=== PATIENT | male | born 1960 | race Caucasian/White ===

== ENCOUNTER → 2020-07-14 10:17 | Outpatient (BNVA) | payer BC, SELFPAY | PROVIDERS: Family Provider Family Medicine; PCP Family Medicine; Visit Provider Urology | DX: N13.8 Other obstructive and reflux uropathy (principal); N40.1 Benign prostatic hyperplasia with lower urinary tract symptoms; N20.1 Calculus of ureter; R35.8 Other polyuria; Z12.5 Encounter for screening for malignant neoplasm of prostate; F17.290 Nicotine dependence, other tobacco product, uncomplicated | CPT/HCPCS: 81003; G0103 ==

== ENCOUNTER 2021-03-17 07:52 | Outpatient (CLI) | payer BC, SELFPAY ==
--- NOTE | 2021-03-17 08:00 | MR_ITS ---
WS: [id number] MRI CERVICAL SPINE NONCONTRAST HISTORY: NECK PAIN; CERVICAL SPONDYLOSIS W RADICULOPATHY COMPARISON: 05/28/2019 Technique: Multiplanar, multisequence noncontrast imaging of the cervical spine. Straightening of the normal cervical lordosis. No acute fracture. Very small amount of marrow edema a nd increased T2 signal in the C6 vertebral body is similar to the prior study. Signal within the cervical cord is normal. Visualized posterior fossa is unremarkable. Craniocervical junction, C1 and C2 relationship, odontoid process and soft tissues are normal. C2-C3: Normal. C3-C4: Shallow central disc protrusion with no stenosis. C4-C5: Mild osteophytic ridging and disc bulging. Mild bilateral facet joint arthritis. No stenosis. C5-C6: Very shallow central disc protrusion and mild osteophytic ridging and disc bulging. Mild osteo phyte encroachment into the foramina. Very mild bilateral foraminal stenosis. C6-C7: Mild annular disc bulging with bilateral foraminal disc osteophyte complexes displacing the ex iting nerve roots. Mild to moderate bilateral foraminal stenosis and mild central stenosis. There is very minimal disc contact upon the ventral cord but no displacement. Mild facet arthritis. C7-T1: Small foraminal osteophytes. No significant stenosis. Lymph node in the LEFT parotid gland. MR/MR cervical spin wo con* [id number] IMPRESSION: 1. Very mild progression of degenerative disc disease and facet arthritis in t he cervical spine since 05/28/2019. 2. Mild to moderate bilateral foraminal stenosis and mild central stenosis at C6-7 due to disc protrusions and disc osteophyte complexes. Very slight contact on the ventral cervical cord at this level with no displacement of the cord. 3. Mild bilateral foraminal narrowing at C5-6 due to osteophyte disease. 4. Small central disc protrusions at C3-4 and C5-6.
--- NOTE | 2021-03-17 09:23 | XRR_ITS ---
PROCEDURE INFORMATION: Exam: XR Cervical Spine Exam date and time: 03/17/2021 9:23 AM Age: 61 years old Clinical indication: Cervicalgia; Patient HX: Pain 1 month; Additional info: Dorsaigia, unspecified TECHNIQUE: Imaging protocol: XR of the cervical spine. Views: 4 or 5 views. COMPARISON: MR cervical spin wo con* [id number] 03/17/2021 8:18 AM FINDINGS: Bones/joints: No fracture or other acute bone or joint abnormalities are seen in the cervical spine. Chronic degenerative changes are present with osteophytes, joint space narrowing and sclerosis especially at the C6-C7 level. There is no significant malalignment. Soft tissues: Unremarkable. XR/XR cervical spine 4-5V [id number] IMPRESSION: Chronic degenerative joint disease. No acute abnormality.
== END 2021-03-17 07:53 | disposition home or self-care (01) ==
PROVIDERS: PCP Family Medicine; Visit Provider Neurological Surgery
DX: M47.22 Other spondylosis with radiculopathy, cervical region (principal); M47.812 Spondylosis without myelopathy or radiculopathy, cervical region; M50.30 Other cervical disc degeneration, unspecified cervical region; M48.02 Spinal stenosis, cervical region; M50.21 Other cervical disc displacement, high cervical region
CPT/HCPCS: 72050; 72141

== ENCOUNTER 2021-04-08 09:16 | Outpatient (RCR) | payer BC, SELFPAY | END 2021-05-05 23:59 | disposition home or self-care (01) | LOC: SPT 09:16 | PROVIDERS: PCP Family Medicine; Referring Provider Neurological Surgery; Visit Provider Neurological Surgery | DX: M50.30 Other cervical disc degeneration, unspecified cervical region (principal); M50.20 Other cervical disc displacement, unspecified cervical region | CPT/HCPCS: 97161 ==

== ENCOUNTER → 2021-07-21 08:05 | Outpatient (BNVA) | payer BC, SELFPAY | PROVIDERS: PCP Family Medicine; Visit Provider Urology | DX: N13.8 Other obstructive and reflux uropathy (principal); N40.1 Benign prostatic hyperplasia with lower urinary tract symptoms | CPT/HCPCS: 81003 ==

== ENCOUNTER 2021-12-03 10:42 | Observation (INO) | payer BC, SELFPAY ==
[2021-12-03] VITALS (14 sets, daily range): BP systolic 122–181; BP diastolic 76–111; PULSE 51–65; RESP 14–19; TEMP 36–36.6; O2SAT 96–100; BMI 27.2
--- NOTE | 2021-12-03 11:13 | ED_ITS ---
HPI - Altered Mental Status General: Chief Complaint: Weakness Stated Complaint: No memory of this morning, headache Time Seen by Provider: 12/03/21 11:13 PFSH ED PFSH: Medical History Atrial fibrillation BPH with obstruction/lower urinary tract symptoms HTN (hypertension) Polyuria Surgical History S/P appendectomy S/P knee surgery Family History Mother No problems noted. Grandmother Cancer PATERNAL/BREAST Grandfather CAD (coronary artery disease) PATERNAL/MATERNAL Stroke PATERNAL Father Hypertension Social History Smoking and tobacco status: current some day smoker (chews tobacco) smokeless tobacco Alcohol intake: never Household members: spouse Marital status: service: No Current occupational status: retired and other Details: [employer] RET[employer] History of recent travel: No Course Vital Signs: Vital signs: Vital Signs Temperature 96.8 F L 12/03/21 11:12 Pulse Rate 61 12/03/21 11:12 Respiratory Rate 16 12/03/21 11:12 Blood Pressure 181/111 12/03/21 11:12 Pulse Oximetry 98 12/03/21 11:12 Discharge Plan Discharge Condition: Stable Prescriptions: No Action aspirin [Aspir-81] 81 mg tablet,delayed release (DR/EC) 81 mg PO DAILY 0RF ibuprofen [IBU-200] 200 mg tablet 200 mg PO Q6H PRN0RF nadolol 20 mg tablet 10 mg PO DAILY 0RF clonazepam 1 mg tablet 1 mg PO DAILY 0RF famotidine 20 mg tablet 20 mg PO DAILY PRN0RF tamsulosin 0.4 mg capsule 0.4 mg PO QDAY Qty: 30 12RF losartan 25 mg tablet 25 mg PO DAILY Qty: 90 3RF Referrals: Ashlyn Carlson MD [Primary Care Provider] - Coding Level of Care Code 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
--- NOTE | 2021-12-03 11:34 | ECG_ITS ---
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 Measurements Intervals [place] Rate: 52 P: 21 MN: 202 QRS: 4 QRSD: 76 T: 72 QT: 408 QTc: 383 Interpretive Statements SINUS BRADYCARDIA Compared to ECG 12/03/2021 13:23:37 No significant changes Electronically Signed On 12-04-2021 11:04:41 CDT by Cheri Gates M.D. [id number]
--- NOTE | 2021-12-03 11:34 | CT_ITS ---
WS: [id number] CT ANGIOGRAM CEREBRAL AND CAROTID ARTERIES HISTORY: stroke like symptoms, facial droop TECHNIQUE: CT angiogram is performed of the carotid and cerebral arteries. During arterial injection imaging is obtained from the skull vertex to the aortic arch in 1.25 mm imaging. Coronal and sagittal reformats are submitted. Additional multi planar reformats of the carotid and cerebral arteries are submitted, MIP imaging also reviewed. NASCET criteria utilized. [facility] CT [facility] at least one of these dose optimization techniques: automated exposure control; mA and/or kV adjust ment per patient size (includes targeted exams where dose is matched to clinical indication); or iter ative reconstruction. CONTRAST: Visipaque 320; 95 mL IV. DLP: 2734.57 mGy.cm COMPARISON: None available. Carotid Angiogram: Right carotid: Common carotid artery: Arises normally from the innominate artery. No significant plaque or stenosis. Internal carotid artery: No plaque or stenosis. External carotid artery: Patent. Left carotid: Common carotid artery: Arises normally from the aorta. No significant plaque or stenosis. Internal carotid artery: No plaque or stenosis. Prominent loop but no stenosis. External carotid artery: Patent. Right vertebral artery: Normal size. Interestingly transverse foramina at C5-6. Left vertebral artery: Unremarkable. Arises normally from the subclavian artery. Subclavian arteries: No stenosis or significant abnormality. Upper thorax: Normal. Thyroid gland: Normal. Osseous structures: Straightening of the normal cervical lordosis. Mild cervical spondylitic changes. CEREBRAL ANGIOGRAM: Intracranial vertebral arteries: RIGHT vertebral artery slightly greater caliber than the LEFT. Basilar artery: No significant stenosis or occlusion. No aneurysm. Intracranial Internal carotid arteries: Demonstrates no significant stenosis or plaque. Middle cerebral arteries: Normal. Anterior cerebral arteries and ACOM: Hypoplastic but patent RIGHT A1 segment. LEFT A1 segment is trisha nant. Posterior cerebral arteries and PCOM's: Normal. Dural venous sinuses are normally enhancing. Mastoid air cells: Normal. Paranasal sinuses: Normal. Calvarium: Normal. CT/CT angio headneck* [id number] IMPRESSION: 1. Normal carotid arteries. 2. No significant thrombus or stenosis or atherosclerotic plaque within the in tracranial carotid arteries or rincon of Alfaro. 3. Small caliber, hypoplastic RIGHT A1 segment but it is patent. Normal varian t.
--- NOTE | 2021-12-03 11:34 | XR_ITS ---
WS: [id number] Exam: XR chest 1V portable [id number] Date/Time of Exam: 12/03/2021 11:47 AM Reason For Exam: stroke like symptoms Comparison 01/24/2019. Findings: The lungs are clear and fully expanded. Costophrenic angles are sharp. No infiltrates. Bronchovascula r relief appears normal. Cardiac silhouette is unremarkable. Bony elements are intact. XR/XR chest 1V portable [id number] IMPRESSION: Unremarkable chest radiograph.
--- NOTE | 2021-12-03 11:34 | CT_ITS ---
WS: [id number] CT HEAD NONCONTRAST HISTORY: stroke like symptoms TECHNIQUE: Contiguous axial imaging performed through the brain in 2.5 mm imaging. Bone and soft tiss ue windows. Sagittal and coronal reformats reviewed. All CT scans at [facility] use at least one of these dose optimization techniques: automated exposure control; mA and/or kV adjustment per pa tient size (includes targeted exams where dose is matched to clinical indication); or iterative recon struction. DLP: 974.87 mGy.cm COMPARISON: None available. No acute intracranial hemorrhage, midline shift or mass effect. No atrophy or prior infarcts or herniation. Ventricles: Normal size with no hydrocephalus. Paranasal sinuses: As visualized are clear. Mastoid air cells: Well pneumatized. Calvarium and scalp: Skull is intact with no soft tissue edema or swelling. CT/CT head wo con* [id number] IMPRESSION: Negative head CT.
[2021-12-03 11:36] LABS: Glucose Point of Care 107 mg/dL (70-110)
[2021-12-03 11:40] LABS: White Blood Count 6.8 10^3/uL (4.0-10.0)
--- NOTE | 2021-12-03 11:40 | ED_ITS ---
HPI - Neuro Symptoms/Deficit General: Chief Complaint: Weakness Stated Complaint: No memory of this morning, headache Time Seen by Provider: 12/03/21 11:13 History of Present Illness: Mr Kovacs is a 61-year-old gentleman with history of hypertension, questionable atrial fibrillation not on anticoagulation, and stomach ulcers who presents to the emergency department due to strokelike symptoms. He reports over the past few days he has been getting headaches more frequently, he denies history of frequent headaches prior to this. These have not been associated with neurologic deficits. Today he was last definitively seen well at approximately 7:30 AM. He had to drive to [place] for a lab draw in preparation for a doctor's appointment and lost memory of these events. This is slowly come back. This was not associated with headache however he has never had anything similar in the past. Intensity symptoms was severe. Course has been improving. He currently has mild right-sided facial droop which he did not seem to be aware of. Other than stomach issues denies other recent changes in health. No other specific changes in health, exacerbating, or alleviating fa ctors identified. Onset (ago): hour(s) Last Observed Normal: 07:30 Timing confirmed by: family member Location: other History of same: No Severity: severe Quality: improving On Anticoagulants: No Review of Systems General: Reports: 10 or more systems reviewed and unremarkable except in HPI and below PFSH ED PFSH: Medical History Atrial fibrillation BPH with obstruction/lower urinary tract symptoms HTN (hypertension) Polyuria Surgical History S/P appendectomy S/P knee surgery Family History Mother No problems noted. Grandmother Cancer PATERNAL/BREAST Grandfather CAD (coronary artery disease) PATERNAL/MATERNAL Stroke PATERNAL Father Hypertension Social History Smoking and tobacco status: current some day smoker smokeless tobacco Alcohol intake: never Household members: spouse Marital status: service: No Current occupational status: retired and other Details: [employer] RETIRED History of recent travel: No Physical Exam Const: COMMON NORMALS: patient oriented x3 and alert GENERAL APPEARANCE: cooperative and well developed HENMT: COMMON NORMALS: normocephalic and atraumatic HEAD & SCALP: normocephalic and atraumatic THROAT: posterior oropharynx normal Eye: COMMON NORMALS: conjunctivae normal CONJUNCTIVA: Yes conjunctivae normal SCLERA: sclerae normal Neck/C-Spine: COMMON NORMALS: supple GENERAL: Yes trachea midline Resp: COMMON NORMALS: normal respiratory effort EFFORT & INSPECTION: Yes able to speak in complete sentences Cardio: COMMON NORMALS: regular rate and regular rhythm RATE: regular rate RHYTHM: regular rhythm GI: COMMON NORMALS: Soft to palpation PALPATION: Yes Soft to palpation and No Tenderness to palpation present (GI) PERCUSSION: normal to percussion Extremity: GENERAL: Yes normal exam except as noted and No edema Neuro: COMMON NORMALS: patient oriented x3, moves all extremities, 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 Patient outside stroke window/symptoms improving/low NIHSS for TPA. - Labs and xrays personally interpreted by me. EKG is obtained at 1752, 1128, and 1323 interpreted by me. Sinus rhythm with borderline ST segment abnormaliti es. No STEMI. -Fluids given. - Labs notable for no leukocytosis, likely hemoconcentration. No acute metabolic derangement to explain symptoms. Elevated T bili of unclear etiology, per comparison to 2019 mildly late at that time as well. - Imaging notable for no lobar consolidation or pneumothorax. CT head and CTA head neck without evidence of acute pathology symptoms. - Upon serial reexamination after treatment the patient was similar - Based on patient history, evaluation, and testing as interpreted the most likely cause of the patient's condition is stroke/TIA with improving symptoms with possible history of atrial fibrillation not on anticoagulation. - The results of ED evaluation were discussed with the patient including plan for admission due to requirement for level of care not available if discharged to prevent significant worsening/deterioration. - Admitting service was contacted and Dr Foreman with the hospitalist service agreed to admit the patient - Patient was admitted without further deterioration or significant events. Note: Click bubbles or prepopulated rangel in note writing are used for assistance with data collection and billing and are inherently more limited than narrative and other text portions of this note. Please use narrative for additional clini eulalia history and defer to narrative/free test for any case of contradictory information. If information appears in only free text or click bubble it should be considered present or absent as reported. Please contact note rfp writer for clarifications of clinical information or contradictory information. MDM is a brief summary, contradictory or erroneous seeming information should be clarified and full note should be reviewed. Vital Signs: Vital signs: Vital Signs Temperature 97.8 F 12/04/21 11:50 Pulse Rate 69 12/04/21 16:10 Respiratory Rate 18 12/04/21 11:50 Blood Pressure 156/89 12/04/21 11:50 Pulse Oximetry 98 12/04/21 11:50 MDM - Neuro Symptoms/Deficit Medical Decision Making 61-year-old gentleman with history of questionable atrial fibrillation not on anticoagulation resenting with strokelike symptoms that have improved. Patient has amnesia event earlier today and now has right facial droop which spares the forehead. NIHSS 2 and patient is not a candidate for TPA at this time. Admitted for further evaluation and risk factor management. Medical Records I reviewed the patient's medical records. Lab Data I reviewed the patient's lab results. : 12/03/21 11:31 12/03/21 11:31 Radiology Impressions Chest X-Ray 12/03/21 11:34 IMPRESSION: Unremarkable chest radiograph. Head CT 12/03/21 11:34 IMPRESSION: Negative head CT. Head/Neck CTA 12/03/21 11:34 IMPRESSION: 1. Normal carotid arteries. 2. No significant thrombus or stenosis or atherosclerotic plaque within the intracranial carotid arteries or ruby of Alfaro. 3. Small caliber, hypoplastic RIGHT A1 segment but it is patent. Normal variant. Abdomen Ultrasound 12/03/21 19:41 IMPRESSION: 1. Significantly limited evaluation of the RIGHT upper quadrant. The organs in the RIGHT upper quadrant are not adequately visualized. There is a large amount shadowing obscuring the structures. 2. For further evaluation consider CT evaluation with IV and oral contrast. Head MRI 12/04/21 08:11 IMPRESSION: 1. No acute infarct, hemorrhage or mass effect. 2. Very minimal, age-appropriate T2 and FLAIR signal hyperintensities. Probably related to very minimal small vessel ischemic disease. 3. No signal abnormality at the cerebellopontine angle. Laboratory Results WBC 6.8 10^3/uL (4.0-10.0) 12/03/21 11:31 RBC 5.61 10^6/uL (4.1-5.3) H 12/03/21 11:31 Hgb 16.8 g/dL (11.7-16.6) H 12/03/21 11:31 Hct 47.4 % (42.0-52.0) 12/03/21 11:31 MCV 84.5 fl (80-94) 12/03/21 11:31 MCH 29.9 pg (28.0-34.0) 12/03/21 11:31 MCHC 35.4 g/dL (30.0-36.0) 12/03/21 11:31 RDW 13.2 % (12.1-15.1) 12/03/21 11:31 Plt Count 230 10^3/cmm (130-400) 12/03/21 11:31 MPV 10.0 fL (7.4-10.4) 12/03/21 11:31 Neut % (Auto) 60.5 % 12/03/21 11:31 Lymph % (Auto) 27.9 % 12/03/21 11:31 Rooks % (Auto) 8.4 % 12/03/21 11:31 Eos % (Auto) 2.2 % 12/03/21 11:31 Baso % (Auto) 0.7 % 12/03/21 11:31 Neut # (Auto) 4.09 10^3/uL (1.8-7.7) 12/03/21 11:31 Lymph # (Auto) 1.9 10^3/uL (0.8-4.8) 12/03/21 11:31 Rooks # (Auto) 0.6 10^3/uL (0.2-0.9) 12/03/21 11:31 Eos # (Auto) 0.2 10^3/uL (0.0-0.8) 12/03/21 11:31 Baso # (Auto) 0.1 10^3/uL (0.0-0.1) 12/03/21 11:31 Nucleated RBC % (auto) 0 % 12/03/21 11:31 Nucleated RBCs # 0.0 /100WBC 12/03/21 11:31 Sodium 136 mmol/L (136-145) 12/03/21 11:31 Potassium 4.4 mmol/L (3.5-5.1) 12/03/21 11:31 Chloride 100 mmol/L (98-107) 12/03/21 11:31 Carbon Dioxide 26 mmol/L (22-29) 12/03/21 11:31 Anion Gap 14.4 (5-19) 12/03/21 11:31 BUN 16 mg/dL (8-23) 12/03/21 11:31 Creatinine 1.0 mg/dL (0.7-1.2) 12/03/21 11:31 GFR Calculation 76.2 mL/min (90-130) L 12/03/21 11:31 Glucose 93 mg/dL (65-115) 12/03/21 11:31 POC Glucose 107 mg/dL (70-110) 12/03/21 11:27 Estimat Average Glucose 100 12/03/21 11:31 Hemoglobin A1c 5.1 % (4.0-6.0) 12/03/21 11:31 Calculated Osmolality 283 mOsm/kg (285-295) L 12/03/21 11:31 Calcium 9.4 mg/dL (8.5-10.5) 12/03/21 11:31 Total Bilirubin 1.6 mg/dL (0.15-1.2) H 12/03/21 11:31 Total Bilirubin 1.7 mg/dL (0.15-1.2) H 12/03/21 11:31 Direct Bilirubin 0.20 mg/dL (0.00-0.30) 12/03/21 11:31 Indirect Bilirubin 1.40 12/03/21 11:31 GGT 14 U/L (8-61) 12/03/21 11:31 AST 16 U/L (0-40) 12/03/21 11:31 ALT 19 U/L (0-41) 12/03/21 11:31 Alkaline Phosphatase 53 IU/L (40-130) 12/03/21 11:31 Troponin T Baseline 8 ng/L (0-15) 12/03/21 11:31 Troponin T 120 Minute 6.07 ng/L (0-15) 12/03/21 13:53 Delta Troponin T -1.93 ABS# (0-10) L 12/03/21 13:53 Total Protein 7.5 g/dL (6.6-8.7) 12/03/21 11:31 Albumin 4.3 g/dL (3.5-5.2) 12/03/21 11:31 Globulin 3.2 g/dL (1.3-4.6) 12/03/21 11:31 Triglycerides 138 mg/dL (0-150) 12/03/21 11:31 Cholesterol 166 mg/dL (0-200) 12/03/21 11:31 LDL Cholesterol, Calc 89 mg/dL (50-129) 12/03/21 11:31 HDL Cholesterol 49 mg/dL (60-100) L 12/03/21 11:31 LDL/HDL Ratio 1.82 RATIO (0.00-3.22) 12/03/21 11:31 Cholesterol/HDL Ratio 3.39 mg/dL (1.0-5.00) 12/03/21 11:31 Lipase 30 U/L (13-60) 12/03/21 11:31 TSH 2.31 uIU/mL (0.27-4.20) 12/03/21 11:31 Ethyl Alcohol < 10 mg/dL (0-10) 12/03/21 11:31 Discharge Plan Discharge Patient Disposition: Placed in Observation Admit Provider: Carlos Foreman Clinical Impression: Stroke Discharge Diet: Cardiac Discharge Activity: Resume usual activity Coding Level of Care Code ED Bridge 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
[2021-12-03 11:41] LABS: Basophils # 0.1 10^3/uL (0.0-0.1); Basophils % 0.7 %; Eosinophils # 0.2 10^3/uL (0.0-0.8); Eosinophils % 2.2 %; Hematocrit 47.4 % (42.0-52.0); Hemoglobin 16.8 g/dL (11.7-16.6); Lymphocytes # 1.9 10^3/uL (0.8-4.8); Lymphocytes % 27.9 %; Mean Corpuscular HGB Conc 35.4 g/dL (30.0-36.0); Mean Corpuscular Hemoglobin 29.9 pg (28.0-34.0); Mean Corpuscular Volume 84.5 fl (80-94); Monocytes # 0.6 10^3/uL (0.2-0.9); Monocytes % 8.4 %; Neutrophils # 4.09 10^3/uL (1.8-7.7); Neutrophils % 60.5 %; Nucleated Red Blood Cells % 0 %; Platelet Count 230 10^3/cmm (130-400); Red Blood Count 5.61 10^6/uL (4.1-5.3); Red Cell Distribution Width 13.2 % (12.1-15.1)
[2021-12-03] MEDS: lactated ringers 1,000 ML 999 ML IV (11:58)
[2021-12-03 12:10] LABS: Troponin(5th) Baseline 8 ng/L (0-15)
[2021-12-03 12:15] LABS: Alanine Aminotransferase 19 U/L (0-41); Albumin Level 4.3 g/dL (3.5-5.2); Alkaline Phosphatase 53 IU/L (40-130); Anion Gap 14.4 (5-19); Aspartate Amino Transferase 16 U/L (0-40); Blood Urea Nitrogen 16 mg/dL (8-23); Calcium 9.4 mg/dL (8.5-10.5); Carbon Dioxide 26 mmol/L (22-29); Chloride 100 mmol/L (98-107); Globulin 3.2 g/dL (1.3-4.6); Glomerular Filtration Rate 76.2 mL/min (90-130); Glucose 93 mg/dL (65-115); Osmolality Calculated 283 mOsm/kg (285-295); Potassium 4.4 mmol/L (3.5-5.1); Sodium 136 mmol/L (136-145); Thyroid Stimulating Hormone 2.31 uIU/mL (0.27-4.20); Total Bilirubin 1.7 mg/dL (0.15-1.2); Total Protein 7.5 g/dL (6.6-8.7)
--- NOTE | 2021-12-03 12:25 | PC.PHAR ---
PT STATES HE TAKES CARE OF HIS OWN MEDICATIONS-PT STATES HE IS ON A TITRATING DOSE OF CLONAZEPAM EXT MED HISTORY SHOWS 1MG DAILY LAST FILLED 11/05/21 30D/S AND 0.5MG BID FILLED ON 11/30/21 30D/S-RX FILLED 11/12/21 FOR PROTONIX 40MG DAILY AND PRILOSEC 40MG DAILY FILLED ON 11/17/21 30D/S PT STATES HE IS ONLY TAKING PEPCID 20MG BID STATES ITS AN OLD RX EXT MED HISTROY SHOWS LAST FILLED 08/15/21 30D/S-EXT MED HISTORY SHOWS FLOMAX 0.4MG DAILY ON 08/16/21 30D/S PT STATES HE HASNT TAKEN IT FOR 3 YEARS-PT STATES THE ZOLOFT 25MG WAS DCED RX FILLED 10/30/21 60D/S-NOTES ARE MADE IN THE PHARMACY COMMENTS
[2021-12-03] MEDS: iodixanol 320 mg/mL 100mL Btl IV (12:27)
--- NOTE | 2021-12-03 13:34 | ECG_ITS ---
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 Measurements Intervals [place] Rate: 62 P: 52 [place]: 209 QRS: -5 QRSD: 78 T: 68 QT: 383 QTc: 391 Interpretive Statements SINUS RHYTHM Compared to ECG 01/24/2019 10:43:30 Atrial fibrillation no longer present Electronically Signed On 12-04-2021 13:50:23 CDT by Cheri Gates M.D. [email or web address]
[2021-12-03 14:27] LABS: Troponin 5 2HR 6.07 ng/L (0-15)
[2021-12-03 14:40] LABS: Troponin 5 2HR Delta -1.93 ABS# (0-10)
[2021-12-03] MEDS: CLONazepam 0.5 mg Tablet PO (15:02)
--- NOTE | 2021-12-03 15:24 | P.HP_ITS ---
Providers/Chief Complaint Primary Care Provider: Ashlyn Carlson MD Chief Complaint: No memory of this morning, headache History of Present Illness Cezar Kovacs is a 61 year old male with a past medical history of hypertension, anxiety, possible atrial fibrillation? Who presents [facility] due to amnesia. 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 Review of Systems Const: Denies: fever(s) or fatigue ENMT: Denies: nasal congestion Resp: Denies: dyspnea, non-productive cough or wheezing GI: Denies: abdominal pain, nausea, vomiting or hematemesis : Denies: dysuria Skin/Breast: Denies: rash Neuro: Denies: headache(s), dizziness or vertigo Endo: Denies: polyuria or polydipsia Medications/Allergies Home Medications Medication Instructions Recorded Confirmed Last Taken Type nadolol 20 mg tablet 20 mg PO BEDTIME tab 02/13/20 12/03/21 12/02/21 History clonazepam 1 mg tablet See Rx Instructions .ROUTE 07/21/21 12/03/21 12/03/21 07:00 History .COMPLEX tab 1 MG famotidine 20 mg tablet 20 mg PO BID 07/21/21 12/03/21 12/03/21 07:00 History aspirin 325 mg tablet 325 mg PO QPM 12/03/21 12/03/21 12/02/21 History losartan 25 mg tablet 25 mg PO QAM 12/03/21 12/03/21 12/03/21 07:00 History Allergies Allergy/AdvReac Type Severity Reaction Status Date / Time No Known Allergies Allergy Verified 12/03/21 12:18 PFSH Acute PFSH: Medical History Atrial fibrillation BPH with obstruction/lower urinary tract symptoms HTN (hypertension) Polyuria Surgical History S/P appendectomy S/P knee surgery Family History Mother No problems noted. Grandmother Cancer PATERNAL/BREAST Grandfather CAD (coronary artery disease) PATERNAL/MATERNAL Stroke PATERNAL Father Hypertension Social History Smoking and tobacco status: current some day smoker smokeless tobacco Alcohol intake: never Household members: spouse Marital status: service: No Current occupational status: retired and other Details: [employer] History of recent travel: No Vitals/I&O/Wt Last Vital Signs Temp 96.8 F L 12/03/21 11:12 Pulse 56 L 12/03/21 15:07 Resp 15 12/03/21 15:07 BP 159/87 12/03/21 15:07 Pulse Ox 99 12/03/21 15:07 12/03/21 12/03/21 12/03/21 06:59 14:59 22:59 Intake Total 1000 / 1000 Balance 1000 / 1000 Weight last 48 hrs Weight 104.326 kg Physical Exam Const: COMMON NORMALS: no acute distress and patient oriented x3 HENMT: COMMON NORMALS: normocephalic HEAD & SCALP: normocephalic Eye: COMMON NORMALS: Equal, round and reactive pupils present and EOMs intact bilaterally Resp: COMMON NORMALS: normal respiratory effort, No retractions, No use of accessory muscles and clear to auscultation bilaterally AUSCULTATION: clear to auscultation bilaterally Cardio: COMMON NORMALS: no JVD, regular rate, regular rhythm, S1 normal heart sound present and S2 normal heart sound present RATE: regular rate RHYTHM: regular rhythm HEART SOUNDS: S1 normal heart sound present and S2 normal heart sound present GI: COMMON NORMALS: Normal to inspection, nondistended, normoactive bowel sounds present, Soft to palpation, non-tender, No hepatosplenomegaly present, no masses and no bruits PALPATION: Yes Soft to palpation and Yes No hepatosplenomegaly present Extremity: COMMON NORMALS: capillary refill normal, no clubbing, cyanosis or edema, no calf tenderness and no pedal edema Neuro: COMMON NORMALS: patient oriented x3, CN's II-XII intact bilaterally, moves all extremities, no focal motor deficits and no sensory deficits noted CRANIAL NERVES: Yes CN normal except as noted COORDINATION/BALANCE: [id number] test normal and [id number] test normal SPEECH: speech normal Psych: COMMON NORMALS: mental status grossly normal Data : 12/03/21 11:31 12/03/21 11:31 A&P Assessment and plan (1) TGA (transient global amnesia): Status: Acute (2) Stroke: Status: Acute (3) BPH with obstruction/lower urinary tract symptoms: Status: Acute (4) HTN (hypertension): Status: Acute Qualifiers: Hypertension type: essential hypertension Qualified Code(s): I10 - Essential (primary) hypertension (5) Atrial fibrillation: Status: Acute Qualifiers: Atrial fibrillation type: paroxysmal Qualified Code(s): I48.0 - Paroxysmal atrial fibrillation Plan Transient global amnesia -Patient has a history of possible atrial fibrillation, he presented to the ER in the past, he had an EKG which showed atrial fibrillation, but there was a lot of artifact he then had an event monitor ordered for 14 days that showed 1 run of SVT for 15 seconds, no other episodes -He is only on aspirin 325 -NIH stroke scale 2, out of TPA window, for me his NIH stroke scale 0, I cannot really discern a right facial droop, no other focal neurologic deficits -CT of the head was within normal limits, CTA was within normal limits, blood work no acute abnormalities except a bili of 1.7 -He does reports some upper abdominal pain, bloating, history of stomach ulcers -Telemetry shows sinus bradycardia Plan -Admit -Neurochecks -NIH stroke scale -Continue aspirin, statin -Hold beta-susannah, continue losartan -We will order cardiac echocardiogram -Telemetry monitoring -We will consider brain MRI -Likely will require a 30-day event monitor on discharge for possible atrial fibrillation -Elevated T bili, 1.7, will do lipase, fractionated bili, ammonia, alcohol level, ultrasound abdomen -Full code -Lovenox for DVT prophylaxis Attestations Medical Necessity Statement*: Patient requires hospitalization for transient global amnesia, outpatient with observation Coding Level of Care Code Acute Laboratory Technology Teacher for Chg Fwd Diagnoses TGA (transient global amnesia) G45.4 Stroke I63.9 BPH with obstruction/lower urinary tract symptoms N40.1; N13.8 HTN (hypertension) I10 Hypertension type: essential hypertension Atrial fibrillation I48.0 Atrial fibrillation type: paroxysmal
--- NOTE | 2021-12-03 15:50 | PC.NURSE ---
PATIENT UA COLLECTED BY CLEAN CATCH
[2021-12-03 16:01] LABS: Add Urine Microscopic? NO; Charge for UA Resulting for Rev
[2021-12-03 16:01] LABS: Alcohol Level < 10 mg/dL (0-10); Lipase 30 U/L (13-60); Total Bilirubin 1.6 mg/dL (0.15-1.2)
[2021-12-03 16:04] LABS: Bilirubin Urine Neg (Negative); Blood Urine Neg (Negative); Glucose Urine UA Norm (Normal); Ketones Urine Negative (Negative); Leukocyte Esterase Urine Negative (Negative); Nitrate Urine Negative (Negative); Protein Urine Neg (Negative); Urine Appearance Clear (CLEAR); Urine Color Yellow (Yellow); Urobilinogen Urine Norm (Negative); pH Urine 7 (5-7)
[2021-12-03 16:27] LABS: Ammonia 21 umol/L (16-60)
--- NOTE | 2021-12-03 17:34 | ECG_ITS ---
[facility] Test Date: 2021-12-03 Pat Name: Cezar Kovacs Department: Room: Gender: Male [employer]: : 1960 Requested By: Bernardo Ray Order Number: [id number] Ann Bellamy MD: Cheri Gates M.D. Measurements Intervals [place] Rate: 55 P: 47 GA: 196 QRS: -4 QRSD: 78 T: 66 QT: 423 QTc: 407 Interpretive Statements SINUS BRADYCARDIA Compared to ECG 12/03/2021 11:28:43 Sinus rhythm no longer present Electronically Signed On 12-04-2021 11:22:33 CDT by Cheri Gates M.D. [id number]
--- NOTE | 2021-12-03 19:41 | USCV_ITS ---
Transthoracic Echo Cezar Kovacs Age: 61 Gender: M : 1960 Exam Date: 12/03/2021 20:27 Ordering Phys: Carlos Foreman MD Technologist: CKJen Exam Location: [facility] [place] Indication: Transient global amnesia BP: 129 / 71 HR: 53 Rhythm: Sinus Technical Quality: Adequate MEASUREMENTS (Male / Female) Normal Values 2D ECHO LV Diastolic Diameter PLAX 4.4 cm 4.2 - 5.9 / 3.9 - 5.3 cm LV Systolic Diameter PLAX 3.7 cm IVS Diastolic Thickness 1.9 cm 0.6 - 1.0 / 0.6 - 0.9 cm IVS Systolic Thickness 2.1 cm LVPW Diastolic Thickness 1.8 cm 0.6 - 1.0 / 0.6 - 0.9 cm LVPW Systolic Thickness 2.2 cm LVOT Diameter 1.8 cm LV Ejection Fraction 2D Teich 21.8 % LV Ejection Fraction MOD 2C 63.3 % LV Ejection Fraction 2C AL 62.8 % LA Diameter 2.3 cm LA Width 2.5 cm LA Height 4.1 cm RA Width 3.7 cm RA Height 4.0 cm Aorta at Sinotubular Diameter 2.6 cm M-MODE Aortic Annulus Diameter 3.3 cm LA Ao Ratio MM 0.7 MV E Point Septal Separation 0.4 cm DOPPLER AV Peak Velocity 100.8 cm/s LVOT Peak Velocity 107.0 cm/s AV Area Cont Eq vti 2.3 cm squared AV Area Cont Eq pk 2.8 cm squared MV Peak Velocity 113.0 cm/s MV Area PHT 4.5 cm squared Mitral E to A Ratio 1.0 MV E' Velocity 67.2 cm/s Mitral E to MV E' Ratio 12.4 Mitral E to LV E' Lateral Ratio 11.3 Mitral E to LV E' Septal Ratio 13.8 TR Peak Velocity 198.3 cm/s TR Peak Gradient 15.7 mmHg TR Mean Velocity 125.9 cm/s TR Mean Gradient 8.6 mmHg TR Velocity Time Integral 57.5 cm Right Atrial Pressure 5.0 mmHg Pulmonary Artery Systolic Pressu 20.7 mmHg PV Peak Velocity 88.0 cm/s RV Acceleration Time 0.1 s RV Ejection Time 0.3 s RV AcT/ET 0.5 FINDINGS Left Ventricle Normal left ventricular size and systolic function, EF 65 %. No regional wall motion abnormalities. Mild left ventricular hypertrophy. Right Ventricle Appears to be mildly dilated.normal right ventricular systolic function. Right Atrium Appears to be mildly dilated Left Atrium The left atrium is normal in size. Mitral Valve Mild mitral valve regurgitation. Aortic Valve Thickened aortic valve. Tricuspid Valve No gross abnormalities noted Pulmonic Valve Pulmonic valve not well visualized. Pericardium No pericardial effusion. Aorta Normal aortic annulus size. CONCLUSIONS Normal left ventricular size and systolic function, EF 65 %. No regional wall motion abnormalities. Mild left ventricular hypertrophy. The right atrium and right ventricle appears to be mildly dilated. Mild mitral valve regurgitation. Thickened aortic valve. There is no pericardial effusion. There are no intracardiac masses. Compared to the study from 03/21/2019, there may not be a significant change Dr Dolores Leonard MD FACC (Electronically Signed) Final Date: 04 December 2021 09:13 S
--- NOTE | 2021-12-03 19:41 | US_ITS ---
WS: [id number] RIGHT UPPER QUADRANT ULTRASOUND HISTORY: RIGHT upper quadrant pain. COMPARISON: None. Quality of this examination is significantly limited. There is a large amount shadowing which is prob ably bowel gas throughout the abdomen obscuring the organs. The liver is very poorly visualized and h as an abnormal texture. Liver: 12.6 cm in length. Poorly defined liver with an abnormal texture. The liver is not well identi fied and not well imaged. Portal Vein: Not visualized. Gallbladder: No visualized. CBD: 0.5 cm Pancreas: Not visualized. Right kidney: Not visualized. Aorta and IVC: Not visualized. No ascites. US/US abdomen limited [id number] IMPRESSION: 1. Significantly limited evaluation of the RIGHT upper quadrant. The organs in the RIGHT upper quadrant are not adequately visualized. There is a large amoun t shadowing obscuring the structures. 2. For further evaluation consider CT evaluation with IV and oral contrast.
[2021-12-03] MEDS: aspirin 325 mg Tablet PO (20:01)
[2021-12-03] MEDS: atorvastatin 40 mg Tablet PO (20:01)
[2021-12-03] MEDS: pantoprazole 40 mg SDV IVP (20:01)
[2021-12-03] MEDS: enoxaparin 40 mg/0.4 mL Syringe SUBCUT (20:02)
[2021-12-03 20:11] LABS: Chol HDL Ratio 3.39 mg/dL (1.0-5.00); Cholesterol 166 mg/dL (0-200); HDL Cholesterol 49 mg/dL (60-100); LDL Cholesterol Calculated 89 mg/dL (50-129); LDL HDL Ratio 1.82 RATIO (0.00-3.22); Triglycerides 138 mg/dL (0-150)
[2021-12-03 20:18] LABS: Estmated Average Glucose 100; Gamma Glutamyl Transferase 14 U/L (8-61); Hemoglobin A1C 5.1 % (4.0-6.0)
--- NOTE | 2021-12-03 20:26 | PC.NURSE ---
i reported low pulse 54 to nurse
[2021-12-04] VITALS (7 sets, daily range): BP systolic 129–156; BP diastolic 70–90; PULSE 51–69; RESP 17–18; TEMP 36.6–36.8; O2SAT 96–98
--- NOTE | 2021-12-04 00:12 | PC.NURSE ---
i reported to nurse low pulse 55
--- NOTE | 2021-12-04 04:43 | PC.NURSE ---
i reported low pulse 53 to nurse
[2021-12-04] MEDS: losartan 50 mg Tablet 25 MG PO (05:05)
[2021-12-04] MEDS: CLONazepam 1 mg Tablet 0.5 MG PO (05:06)
--- NOTE | 2021-12-04 08:11 | MR_ITS ---
WS: [id number] MRI BRAIN WITHOUT CONTRAST HISTORY: Confusion, loss of memory. COMPARISON: CT 12/03/2021 TECHNIQUE: Diffusion imaging, multiplanar T1, T2 and FLAIR imaging obtained. No evidence for acute infarct or hemorrhage. Kaur-white matter differentiation is normal. There are a few very minimal T2 and FLAIR signal hyperintensities in the subcortical white matter. Appropriate f or patient's age. No prior infarct. No remote or acute infarcts or volume loss. Ventricles and extra-axial spaces are normal. No inferior displacement of cerebellar tonsils. The sella turcica and pituitary gland are unremarkabl e. Pituitary gland does appear small but there is no mass or mass effect. Dural venous sinuses and [place] of [place] demonstrate no abnormality on this unenhanced studies. No s ignal abnormality at the cerebellopontine angles. Paranasal sinuses: Clear. Mastoid air cells: Normal. Calvarium and scalp: Intact. MR/MR head wo con* [id number] IMPRESSION: 1. No acute infarct, hemorrhage or mass effect. 2. Very minimal, age-appropriate T2 and FLAIR signal hyperintensities. Probabl y related to very minimal small vessel ischemic disease. 3. No signal abnormality at the cerebellopontine angle.
--- NOTE | 2021-12-04 10:35 | PC.OT ---
Addendum entered by Carol Mckeon 12/04/21 10:39: 10:19 - 10:30 Original Note: Upon therapist arrival pt laying semi-reclined in bed with friend at bedside. Pt returned from stress test and RN approved OT eval. Pt screened demonstrating WFL for ROM, strength, oriented, and demonstrated independence with bed mobility, functional mobility, no DME or assistive equipment at home. Education/discussion on any adaptations/concerns with return home. Verbalized understanding. No further OT indicated this date.
--- NOTE | 2021-12-04 10:45 | PC.CHAP ---
Pastoral Care Encounter/Spiritual Assessment Type of Contact [] Declined geophysicist visit [] Patient/Family/Request visit [] Outpatient visit [] Follow-up visit [] Physician referral [] Code/Alert [x] Routine visit [] Staff referral [] Actively dying [] Patient sleeping [] Family support [] [] Out of room [] Palliative care [] [] Receiving care in room [] Pre-surgical visit [] Trauma [] Long length of stay [] ICU visit [] Other: Relational/Emotional Strength [x] Patient feels connected with others/family/visitors/staff [] Distress [] Loneliness/isolation [] Abandonment Spirituality of Patient [x] Person of Page [] Attends Muslim of their Page []x Believes in Prayer [] Reads Bible or Catholic materials [x] There are Spiritual issues to be addressed Email Marketing Coordinator Interventions [x] Prayer [x Active listening [x] Non-anxious presence [x] Spiritual/emotional support [] Crisis/trauma care [] Spiritual counseling [] Bereavement support [] Provided bereavement packet [] Provided Bible/devotional materials [] Provided toy/stuffed animal, coloring book to patient or family member [] Provided Communion [] Anointing/[place] [] Salvation [x] Completed spiritual assessment [] Other: Impact on Illness or Injury [] Angry [] Fearful [] Anxious [] Often cries [] Exhaustion [] Unable to work [] Unable to attend adventism [] Unable to walk/stand [] Unable to read [] Unable to drive [] Unable to eat/drink [] Unable to sleep [] Unable to be with family [] Patient intubated [] Other: Summary Time spent with patient 15 min
--- NOTE | 2021-12-04 12:06 | PM.DCS ---
Discharge Providers Date of Admission: 12/03/21 14:07 Date of Discharge: December 04, 2021 Attending Provider at Admission: Carlos Foreman MD Attending Provider at Discharge: Carlos Foreman MD Primary Care Provider: Ashlyn Carlson MD Diagnoses at Discharge Discharge Diagnosis (1) TGA (transient global amnesia): Status: Acute (2) Stroke: Status: Acute (3) BPH with obstruction/lower urinary tract symptoms: Status: Acute (4) HTN (hypertension): Status: Acute Qualifiers: Hypertension type: essential hypertension Qualified Code(s): I10 - Essential (primary) hypertension (5) Atrial fibrillation: Status: Acute Qualifiers: Atrial fibrillation type: paroxysmal Qualified Code(s): I48.0 - Paroxysmal atrial fibrillation Reason for Visit Reason for Visit: No memory of this morning, headache Hospital Course Hospital Course Cezar Kovacs is a 61 year old male with a past medical history of hypertension, anxiety, possible atrial fibrillation?? Who presents [facility] due to amnesia. Patient was admitted to [facility] for transient global amnesia, NIH stroke scale is 2 on admission, out of TPA window, NIH stroke scale for me during my evaluation was 0, I cannot really discern any right facial droop which was reported on admission or any other focal neurologic deficits, CT head within normal limits, CTA within normal limits, MRI of the brain within normal limits, no acute telemetry events, discharged on aspirin 81 mg daily, atorvastatin 40 mg, with a follow-up with neurology as outpatient. Patient was advised if he were to have recurrent strokelike symptoms go to the emergency room or call [phone] immediately Patient has a questionable history of atrial fibrillation, he presented to the ER in the past, and a EKG showed atrial fibrillation, but there was a lot of artifact, he then had an event monitor ordered for 14 days which showed SVT for 15 seconds, no acute atrial fibrillation events, there has been a question if he truly had atrial fibrillation or not. However he tells me that he intermittently has chest palpitations episodes, he interprets it as a gas and abdominal pain, but whenever he checks his pulse it is always racing and it skips a beat. During his hospitalization, EKG did not show any atrial fibrillation events, telemetry did not show any atrial fibrillation, his EKG actually showed a sinus bradycardia. However given his clinical symptoms of chest palpitations, now with transient global amnesia, and prior history of atrial fibrillation, his symptomatology is highly concerning for embolic CVA. Thus given his symptomatology, his TGA, after discussing the risks and benefits of anticoagulation, agreed to proceed with Eliquis 5 mg twice daily. I have discharged him on event monitor for 30 days with a follow-up with cardiology next week. I am not discharged him on any rhythm or rate control medications as he remains in sinus rhythm, and also has sinus bradycardia. Patient does complain of some epigastric discomfort had an EGD roughly a year ago with no specific findings. As I am putting him on Eliquis 5 mg twice a day, there is a concern of possible gastric ulcers his hemoglobin is within normal limits, no bloody or black stool complaints. Nonetheless I discharged on Protonix 40 twice daily with Carafate with a recheck of his hemoglobin through his primary care provider in 1 week. If he were to have any bloody or black stools or any lightheadedness or sudden worsening abdominal pain go to the emergency room. Physical Exam Const: COMMON NORMALS: no acute distress and patient oriented x3 Resp: COMMON NORMALS: normal respiratory effort, No retractions, No use of accessory muscles and clear to auscultation bilaterally AUSCULTATION: clear to auscultation bilaterally Cardio: COMMON NORMALS: regular rate, regular rhythm, S1 normal heart sound present and S2 normal heart sound present RATE: regular rate RHYTHM: regular rhythm HEART SOUNDS: S1 normal heart sound present and S2 normal heart sound present GI: COMMON NORMALS: Normal to inspection, nondistended, normoactive bowel sounds present, Soft to palpation and non-tender PALPATION: Yes Soft to palpation Extremity: COMMON NORMALS: no pedal edema Neuro: COMMON NORMALS: patient oriented x3 Psych: COMMON NORMALS: mental status grossly normal Discharge Data Studies Completed and Pending Completed Studies During Hospitalization Category Date Time Status CT angio headneck* [id number] Urgent Cat Scan 12/03/21 11:[address] head wo con* [id number] Urgent Cat Scan 12/03/21 11:34 Completed XR chest 1V portable [id number] Urgent Exams 12/03/21 11:34 Completed MR head wo con* [id number] Stat MRI 12/04/21 08:11 Completed US abdomen limited [id number] Routine Ultrasound 12/03/21 19:41 Completed Pending at discharge Category Date Time Status CV. echo complete* [id number] Routine Ultrasound 12/03/21 19:41 Taken Radiology Impressions Chest X-Ray 12/03/21 11:34 IMPRESSION: Unremarkable chest radiograph. Head CT 12/03/21 11:34 IMPRESSION: Negative head CT. Head/Neck CTA 12/03/21 11:34 IMPRESSION: 1. Normal carotid arteries. 2. No significant thrombus or stenosis or atherosclerotic plaque within the intracranial carotid arteries or [place] of [place]. 3. Small caliber, hypoplastic RIGHT A1 segment but it is patent. Normal variant. Abdomen Ultrasound 12/03/21 19:41 IMPRESSION: 1. Significantly limited evaluation of the RIGHT upper quadrant. The organs in the RIGHT upper quadrant are not adequately visualized. There is a large amount shadowing obscuring the structures. 2. For further evaluation consider CT evaluation with IV and oral contrast. Head MRI 12/04/21 08:11 IMPRESSION: 1. No acute infarct, hemorrhage or mass effect. 2. Very minimal, age-appropriate T2 and FLAIR signal hyperintensities. Probably related to very minimal small vessel ischemic disease. 3. No signal abnormality at the cerebellopontine angle. Laboratory Results WBC 6.8 10^3/uL (4.0-10.0) 12/03/21 11:31 RBC 5.61 10^6/uL (4.1-5.3) H 12/03/21 11:31 Hgb 16.8 g/dL (11.7-16.6) H 12/03/21 11:31 Hct 47.4 % (42.0-52.0) 12/03/21 11:31 MCV 84.5 fl (80-94) 12/03/21 11:31 MCH 29.9 pg (28.0-34.0) 12/03/21 11:31 MCHC 35.4 g/dL (30.0-36.0) 12/03/21 11:31 RDW 13.2 % (12.1-15.1) 12/03/21 11:31 Plt Count 230 10^3/cmm (130-400) 12/03/21 11:31 MPV 10.0 fL (7.4-10.4) 12/03/21 11:31 Neut % (Auto) 60.5 % 12/03/21 11:31 Lymph % (Auto) 27.9 % 12/03/21 11:31 Hancock % (Auto) 8.4 % 12/03/21 11:31 Eos % (Auto) 2.2 % 12/03/21 11:31 Baso % (Auto) 0.7 % 12/03/21 11:31 Neut # (Auto) 4.09 10^3/uL (1.8-7.7) 12/03/21 11:31 Lymph # (Auto) 1.9 10^3/uL (0.8-4.8) 12/03/21 11:31 Hancock # (Auto) 0.6 10^3/uL (0.2-0.9) 12/03/21 11:31 Eos # (Auto) 0.2 10^3/uL (0.0-0.8) 12/03/21 11:31 Baso # (Auto) 0.1 10^3/uL (0.0-0.1) 12/03/21 11:31 Nucleated RBC % (auto) 0 % 12/03/21 11:31 Nucleated RBCs # 0.0 /100WBC 12/03/21 11:31 Sodium 136 mmol/L (136-145) 12/03/21 11:31 Potassium 4.4 mmol/L (3.5-5.1) 12/03/21 11:31 Chloride 100 mmol/L (98-107) 12/03/21 11:31 Carbon Dioxide 26 mmol/L (22-29) 12/03/21 11:31 Anion Gap 14.4 (5-19) 12/03/21 11:31 BUN 16 mg/dL (8-23) 12/03/21 11:31 Creatinine 1.0 mg/dL (0.7-1.2) 12/03/21 11:31 GFR Calculation 76.2 mL/min (90-130) L 12/03/21 11:31 Glucose 93 mg/dL (65-115) 12/03/21 11:31 POC Glucose 107 mg/dL (70-110) 12/03/21 11:27 Estimat Average Glucose 100 12/03/21 11:31 Hemoglobin A1c 5.1 % (4.0-6.0) 12/03/21 11:31 Calculated Osmolality 283 mOsm/kg (285-295) L 12/03/21 11:31 Calcium 9.4 mg/dL (8.5-10.5) 12/03/21 11:31 Total Bilirubin 1.6 mg/dL (0.15-1.2) H 12/03/21 11: Total Bilirubin 1.7 mg/dL (0.15-1.2) H 12/03/21 11:31 Direct Bilirubin 0.20 mg/dL (0.00-0.30) 12/03/21 11: Indirect Bilirubin 1.40 12/03/21 11:31 GGT 14 U/L (8-61) 12/03/21 11:31 AST 16 U/L (0-40) 12/03/21 11:31 ALT 19 U/L (0-41) 12/03/21 11: Alkaline Phosphatase 53 IU/L (40-130) 12/03/21 11: Ammonia 21 umol/L (16-60) 12/03/21 15:40 Troponin T Baseline 8 ng/L (0-15) 12/03/21 11:31 Troponin T 120 Minute 6.07 ng/L (0-15) 12/03/21 13:53 Delta Troponin T -1.93 ABS# (0-10) L 12/03/21 13:53 Troponin T Hi Sens 6Hr 6.00 ng/L (0-15) 12/03/21 17:43 Troponin T Hi Sens 6Hr Delta -2.00 ng/L (0-12) L 12/03/21 17:43 Total Protein 7.5 g/dL (6.6-8.7) 12/03/21 11: Albumin 4.3 g/dL (3.5-5.2) 12/03/21 11: Globulin 3.2 g/dL (1.3-4.6) 12/03/21 11:31 Triglycerides 138 mg/dL (0-150) 12/03/21 11: Cholesterol 166 mg/dL (0-200) 12/03/21 11:31 LDL Cholesterol, Calc 89 mg/dL (50-129) 12/03/21 11: HDL Cholesterol 49 mg/dL (60-100) L 12/03/21 11:31 LDL/HDL Ratio 1.82 RATIO (0.00-3.22) 12/03/21 11:31 Cholesterol/HDL Ratio 3.39 mg/dL (1.0-5.00) 12/03/21 11:31 Lipase 30 U/L (13-60) 12/03/21 11:31 TSH 2.31 uIU/mL (0.27-4.20) 12/03/21 11:31 Urine Color Yellow (Yellow) 12/03/21 15:37 Urine Appearance Clear (CLEAR) 12/03/21 15:37 Urine pH 7 (5-7) 12/03/21 15:37 Ur Specific [place] 1.010 (1.005-1.030) 12/03/21 15:37 Urine Protein Neg (Negative) 12/03/21 15:37 Urine Glucose (UA) Norm (Normal) 12/03/21 15:37 Urine Ketones Negative (Negative) 12/03/21 15:37 Urine Blood Neg (Negative) 12/03/21 15:37 Urine Nitrate Negative (Negative) 12/03/21 15:37 Urine Bilirubin Neg (Negative) 12/03/21 15:37 Urine Urobilinogen Norm mg/dL (Negative) 12/03/21 15:37 Ur Leukocyte Esterase Negative (Negative) 12/03/21 15:37 Ethyl Alcohol < 10 mg/dL (0-10) 12/03/21 11:31 Vitals Last Vital Signs Temp 97.8 F 12/04/21 11:50 Pulse 56 L 12/04/21 11:50 Resp 18 12/04/21 11:50 BP 156/89 12/04/21 11:50 Pulse Ox 98 12/04/21 11:50 Discharge Plan Discharge Patient Disposition: Home Condition: Stable Prescriptions: New pantoprazole [Protonix] 40 mg tablet,delayed release (DR/EC) 40 mg PO BID 30 Days Qty: 60 0RF sucralfate [Carafate] 1 gram tablet 1 g PO BID 28 Days Qty: 56 0RF atorvastatin 40 mg Tablet 40 mg PO BEDTIME 30 Days Qty: 30 0RF Eliquis 5 mg tablet 5 mg PO BID 30 Days Qty: 60 0RF aspirin 81 mg capsule 81 mg PO DAILY 30 Days Qty: 30 0RF Continued clonazepam 1 mg tablet See Rx Instructions .ROUTE .COMPLEX 0RF Rx Instructions: TITRATING DOSE losartan 25 mg tablet 25 mg PO QAM 0RF Discontinued nadolol 20 mg tablet 20 mg PO BEDTIME 0RF famotidine 20 mg tablet 20 mg PO BID 0RF aspirin 325 mg Tablet 325 mg PO QPM 0RF Discharge Orders: Discharge Order (Routine); Ordered 12/04/21 Ordered By: Carlos Foreman Other Ambulatory Orders: MCT/Event Monitor 30 Days (Routine) Timeframe: 1 Day Facility: [facility] - Location: Radiology Ordered By: Carlos Foreman Referrals: Eliza Don MD [Physician] - 2 weeks (cva ) Ashlyn Carlson MD [Primary Care Provider] - 1-3 days Navin Byers MD [Physician] - 1 week Discharge Diet: Cardiac Discharge Activity: Resume usual activity Patient Instructions: Opioid Safety Activity Restrictions/Additional Instructions: -Please decrease aspirin dose to 81 mg daily -I have added on Eliquis 5 mg twice a day which is a blood thinner -Follow-up with primary care provider in 1 week for recheck hemoglobin -Continue Protonix, Carafate -If you develop bloody or black stools or worsening abdominal pain go to the emergency room -Please follow-up with Dr. Byers next week -Please follow-up with event monitor with cardiology -Please follow-up with neurology -Please discuss with primary care about repeat EGD and colonoscopy Discharge Attestations Time Spent in Discharge Care*: less than 30 min Quality Metrics Clinical Quality Measures [ Cerebrovascular Accident { Contraindication to Antithrombotic: None; antithrombotic prescribed; Contraindication to Anticoagulation: None; anticoagulation prescribed; Contraindication to Statin: None; Statin prescribed;}] Coding Level of Care Code [facility] note Diagnoses TGA (transient global amnesia) G45.4 Stroke I63.9 BPH with obstruction/lower urinary tract symptoms N40.1; N13.8 HTN (hypertension) I10 Hypertension type: essential hypertension Atrial fibrillation I48.0 Atrial fibrillation type: paroxysmal
--- NOTE | 2021-12-04 13:16 | ECG_ITS ---
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 Measurements Intervals [place] Rate: 74 P: 40 CA: 208 QRS: 8 QRSD: 76 T: 55 QT: 376 QTc: 418 Interpretive Statements SINUS RHYTHM Compared to ECG 12/03/2021 17:52:43 Sinus bradycardia no longer present Electronically Signed On 12-04-2021 17:17:00 CDT by Dolores Leonard M.D. [id number]
--- NOTE | 2021-12-04 15:56 | PC.NURSE ---
patient and verbalized understanding of discharge instructions, home medications, and follow up appointments.
== END 2021-12-04 16:13 | disposition home or self-care (01) ==
LOC: ER 15:37 → MEDSURG 17:58
PROVIDERS: Admitting Provider Family Medicine; Emergency Provider Emergency Medicine; PCP Family Medicine; Visit Provider Family Medicine
DX: G45.4 Transient global amnesia (principal); I63.9 Cerebral infarction, unspecified; N40.1 Benign prostatic hyperplasia with lower urinary tract symptoms; N13.8 Other obstructive and reflux uropathy; I10 Essential (primary) hypertension; I48.0 Paroxysmal atrial fibrillation; R29.702 NIHSS score 2; F17.290 Nicotine dependence, other tobacco product, uncomplicated
CPT/HCPCS: 36416; 70450; 70496; 70498; 70551; 71045; 76705; 80053; 80061; 80307; 81003; 82140; 82247; 82248; 82962; 82977; 83036; 83690; 84443; 84484; 85025; 93005; 93306; 96361; 96372; 96374; 99285; C9113; G0378; J1650; Q9967

== ENCOUNTER 2022-07-21 08:59 | Outpatient (CLI) | payer BC, SELFPAY ==
[2022-07-21 10:00] LABS: Prostate Specific AG Urology 0.96 ng/mL (0-4)
== END 2022-07-21 09:00 | disposition home or self-care (01) ==
LOC: LAB 09:01
PROVIDERS: PCP Family Medicine; Visit Provider Urology
DX: Z12.5 Encounter for screening for malignant neoplasm of prostate (principal)
CPT/HCPCS: 36415; 84153

== ENCOUNTER → 2022-07-22 10:14 | Outpatient (BNVA) | payer BC, SELFPAY | PROVIDERS: PCP Family Medicine; Visit Provider Urology | DX: N40.1 Benign prostatic hyperplasia with lower urinary tract symptoms (principal); N13.8 Other obstructive and reflux uropathy; Z12.5 Encounter for screening for malignant neoplasm of prostate | CPT/HCPCS: 81003 ==

== ENCOUNTER → 2023-04-04 10:42 | Outpatient (BNVA) | payer BC, SELFPAY | PROVIDERS: PCP Family Medicine; Visit Provider Nurse Practitioner Family | DX: Z79.01 Long term (current) use of anticoagulants; I48.0 Paroxysmal atrial fibrillation; I10 Essential (primary) hypertension | CPT/HCPCS: 85025 ==

== ENCOUNTER 2023-04-11 08:28 | Outpatient (CLI) | payer BC, SELFPAY ==
[2023-04-11 09:20] LABS: Hematocrit 44.6 % (42.0-52.0); Hemoglobin 15.2 g/dL (11.7-16.6)
== END 2023-04-11 08:29 | disposition home or self-care (01) ==
PROVIDERS: PCP Family Medicine; Visit Provider Nurse Practitioner Family
DX: I48.0 Paroxysmal atrial fibrillation (principal); Z79.01 Long term (current) use of anticoagulants
CPT/HCPCS: 36415; 85014; 85018

== ENCOUNTER 2023-04-18 08:27 | Outpatient (CLI) | payer BC, SELFPAY ==
[2023-04-18 09:00] LABS: Hematocrit 44.4 % (42.0-52.0); Hemoglobin 15.4 g/dL (11.7-16.6)
== END 2023-04-18 08:28 | disposition home or self-care (01) ==
PROVIDERS: PCP Family Medicine; Visit Provider Nurse Practitioner Family
DX: I48.0 Paroxysmal atrial fibrillation (principal); Z79.01 Long term (current) use of anticoagulants
CPT/HCPCS: 36415; 85014; 85018

== ENCOUNTER 2023-05-24 08:21 | Outpatient (CLI) | payer BC, SELFPAY ==
--- NOTE | 2023-05-24 08:31 | XR_ITS ---
WS: [id number] XR shoulder RT min 2V* [id number] REASON FOR EXAM: PAIN IN R SHOULDER FINDINGS: No fracture or focal bone lesion. The acromioclavicular joint is intact and well preserved. Glenohumeral joint is minimally narrowed with mild subchondral sclerosis of the glenoid. No soft tissue abnormality. IMPRESSION: Mild osteoarthritis of the glenohumeral joint.
== END 2023-05-24 08:22 | disposition home or self-care (01) ==
PROVIDERS: PCP Family Medicine; Visit Provider Family Medicine
DX: M19.011 Primary osteoarthritis, right shoulder (principal)
CPT/HCPCS: 73030

== ENCOUNTER 2023-06-01 08:37 | Outpatient (RCR) | payer BC, SELFPAY | END 2023-06-04 23:59 | disposition home or self-care (01) | LOC: SPT 08:37 | PROVIDERS: PCP Family Medicine; Visit Provider Family Medicine | DX: M50.20 Other cervical disc displacement, unspecified cervical region (principal) | CPT/HCPCS: 97161; G0283 ==

== ENCOUNTER 2023-06-05 06:00 | Outpatient (RCR) | payer BC, SELFPAY | END 2023-07-05 23:59 | disposition home or self-care (01) | LOC: SPT 06:00 | PROVIDERS: PCP Family Medicine; Visit Provider Family Medicine | DX: M50.20 Other cervical disc displacement, unspecified cervical region (principal); M25.511 Pain in right shoulder | CPT/HCPCS: 20560; 97110 ==

== ENCOUNTER 2023-07-06 06:00 | Outpatient (RCR) | payer BC, SELFPAY | END 2023-08-04 23:59 | disposition home or self-care (01) | LOC: SPT 06:00 | PROVIDERS: PCP Family Medicine; Visit Provider Family Medicine | DX: M50.20 Other cervical disc displacement, unspecified cervical region (principal) | CPT/HCPCS: 20560; 97110 ==

== ENCOUNTER 2024-05-29 14:21 | Outpatient (CLI) | payer BC, SELFPAY | END 2024-05-29 14:22 | disposition home or self-care (01) | LOC: SLEEP 14:22 | PROVIDERS: PCP Family Medicine; Visit Provider Family Medicine | DX: G47.33 Obstructive sleep apnea (adult) (pediatric) (principal); G47.36 Sleep related hypoventilation in conditions classified elsewhere | CPT/HCPCS: G0399 ==

== ENCOUNTER → 2024-12-17 14:10 | Outpatient (BNVA) | payer BC, SELFPAY | PROVIDERS: PCP Family Medicine; Visit Provider Family Medicine | DX: R10.13 Epigastric pain (principal); Z51.81 Encounter for therapeutic drug level monitoring | CPT/HCPCS: 80053; 83690; 85025; 86141 ==

== ENCOUNTER 2024-12-19 16:07 | Outpatient (CLI) | payer BC, SELFPAY ==
--- NOTE | 2024-12-19 16:30 | US_ITS ---
WS: [id number] RIGHT UPPER QUADRANT ULTRASOUND HISTORY: RUQ abd pain COMPARISON: 12/03/2021 Liver: 16.1 cm in length. Normal size liver and echogenicity. No bile duct dilatation or mass. Portal Vein: Mild decreased velocity. Gallbladder: Slightly contracted gallbladder with diffuse gallbladder wall thickening. No increased vascularity. No edema. No Slade's sign. No stones or sludge. CBD: 0.2 cm Pancreas: Not visualized. Right kidney: 11.1 cm in length. Normal size and echogenicity. No hydronephrosis or mass. Aorta and IVC: Poorly visualized. No ascites. US/US gall bladder [id number] IMPRESSION: 1. No cholelithiasis or sludge. 2. Mild diffuse gallbladder wall thickening. May be related to hepatocellular disease. No Slade sign or stones identified. 3. No hepatobiliary dilatation.
== END 2024-12-19 16:08 | disposition home or self-care (01) ==
PROVIDERS: PCP Family Medicine; Visit Provider Family Medicine
DX: R10.11 Right upper quadrant pain (principal); R93.3 Abnormal findings on diagnostic imaging of other parts of digestive tract
CPT/HCPCS: 76705

== ENCOUNTER 2024-12-20 10:00 | Outpatient (CLI) | payer BC, SELFPAY ==
[2024-12-20] MEDS: iohexol 350 mg/mL 500 mL Btl (per mL) IV (10:15)
--- NOTE | 2024-12-20 10:15 | CT_ITS ---
WS: [id number] CT ABDOMEN AND PELVIS WITH AND WITHOUT CONTRAST 1. HISTORY: Contracted gallbladder TECHNIQUE: Unenhanced 5 mm axial imaging first performed through the abdomen. Post contrast imaging through the abdomen and pelvis. Oral contrast has not been provided. Sagittal and coronal reformats are submitted. All CT scans at [facility] use at least one of these dose optimization techniques: automated exposure control; mA and/or kV adjustment per patient size (includes targeted exams where dose is matched to clinical indication); or iterative reconstruction. CONTRAST: Omnipaque 350; 95 mL IV. DLP: 1383.06 mGy.cm COMPARISON: Gallbladder ultrasound 12/19/2024 Lung bases are clear. No pneumonia. Normal size heart. No hiatal hernia. Liver is normal size. No intrahepatic duct dilatation. Normal portal vein. Gallbladder is contracted. No adjacent inflammation. Gallbladder wall is mildly prominent but not as thickened as noted by ultrasound. Common bile duct is normal. Spleen is measuring top normal size at 13.7 cm. Granulomata. Normal pancreas and adrenal glands. No renal obstruction, calcification or mass. Mild atherosclerosis aorta. Circumaortic LEFT renal vein. Mesenteric arteries are well opacified. No GI tract obstruction or inflammation. No colitis. Prior appendectomy. Minimal distal colonic diverticulosis without acute diverticulitis. Single lymph node is identified in the mann hepatis measuring 8 mm. No pathologically enlarged lymph nodes. There are a few small retroperitoneal lymph nodes. Precaval lymph node 7.7 mm. Ventral abdominal wall umbilical hernia contains fat only. Nondistended urinary bladder. No osseous destruction. CT/CT abdomen pelvis wo/w [id number] IMPRESSION: 2. Contracted gallbladder with no evidence for acute cholecystitis. Gallbladde r is also contracted on the recent ultrasound suggesting chronic cholecystitis. 3. No hepatobiliary duct dilatation. 4. Spleen is measuring top normal size at 13.7 cm. 5. No renal obstruction. 6. Prior appendectomy. 7. There are a few subcentimeter mesenteric and retroperitoneal lymph nodes. N o adenopathy. 8. No ascites.
== END 2024-12-20 10:01 | disposition home or self-care (01) ==
PROVIDERS: PCP Family Medicine; Visit Provider Family Medicine
DX: R10.9 Unspecified abdominal pain (principal); R93.3 Abnormal findings on diagnostic imaging of other parts of digestive tract; Z98.890 Other specified postprocedural states; R59.0 Localized enlarged lymph nodes; D73.89 Other diseases of spleen; I70.0 Atherosclerosis of aorta; R93.89 Abnormal findings on diagnostic imaging of other specified body structures; K43.9 Ventral hernia without obstruction or gangrene
CPT/HCPCS: 74178

== ENCOUNTER → 2025-04-01 13:51 | Outpatient (BNVA) | payer BC, SELFPAY | PROVIDERS: PCP Family Medicine; Visit Provider Family Medicine | DX: R03.0 Elevated blood-pressure reading, without diagnosis of hypertension (principal); M79.675 Pain in left toe(s) | CPT/HCPCS: 84550 ==

== ENCOUNTER 2025-05-27 13:52 | Emergency (ER) | payer BC, SELFPAY ==
--- OUTSIDE RECORDS SUMMARY | 2025-05-27 13:56 | XMS_ITS | Encounter Summary ---
Author Organization [employer] [facility] Address [address] [place] [address] Care Team Providers Care Sleeve Tailor Name Role Phone Unavailable Primary Care Provider Unavailabl e Encounter Details Date Type Department Care Team (Latest Contact Info) Description 10/26/2001 Outpatient Historical [facility] Lynn, Akhil Moore MD [address] [place] [address] IMPACTED CERUMEN (Primary Dx); GENERALIZED ANXIETY DIS Social History Tobacco Use Types Packs/Day Years Used Date Smoking Tobacco: Never Assessed Sex and Gender Information Value Date Recorded Sex Assigned at Not on file 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
--- OUTSIDE RECORDS SUMMARY | 2025-05-27 13:56 | XMS_ITS | Encounter Summary ---
Author Organization [employer] [facility] Address [address] [place] [address] Care Team Providers Care Patient Registration Clerk Name Role Phone Unavailable Primary Care Provider Unavailabl e Encounter Details Date Type Department Care Team (Latest Contact Info) Description 08/24/2001 Outpatient Historical [facility] Lynn, Akhil Moore MD [address] [place] [address] OTHER PULMONARY INSUFF (Primary Dx); GENERALIZED ANXIETY DIS Social History Tobacco Use Types Packs/Day Years Used Date Smoking Tobacco: Never Assessed Sex and Gender Information Value Date Recorded Sex Assigned at Not on file 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
--- OUTSIDE RECORDS SUMMARY | 2025-05-27 13:56 | XMS_ITS | Encounter Summary ---
Author Organization 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
--- OUTSIDE RECORDS SUMMARY | 2025-05-27 13:56 | XMS_ITS | Encounter Summary ---
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
--- OUTSIDE RECORDS SUMMARY | 2025-05-27 13:56 | XMS_ITS | Encounter Summary ---
Author Organization [email or web address] [facility] Address [address] [place] [address] Care Team Providers Care Manager Non Profit Name Role Phone Unavailable Primary Care Provider Unavailabl e Encounter Details Date Type Department Care Team (Latest Contact Info) Description 12/19/2002 Outpatient Historical [facility] Lynn, Akhil Moore MD [address] [place] [address] UNSPECIFIED VIRAL INFECTION (Primary Dx) Social History Tobacco Use Types Packs/Day Years Used Date Smoking Tobacco: Never Assessed Sex and Gender Information Value Date Recorded Sex Assigned at Not on file 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
--- OUTSIDE RECORDS SUMMARY | 2025-05-27 13:56 | XMS_ITS | Encounter Summary ---
Author Organization 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
--- OUTSIDE RECORDS SUMMARY | 2025-05-27 13:56 | XMS_ITS | Encounter Summary ---
Author Organization [facility] Address [address] [place] [address] Care Team Providers Care Bread Wrapping Machine Feeder Name Role Phone Unavailable Primary Care Provider Unavailabl e Encounter Details Date Type Department Care Team (Latest Contact Info) Description 01/13/2001 Outpatient Historical [facility] Lynn, Akhil Moore MD [address] [place] [address] Carbuncle and furuncle of unspecified site (Primary Dx) Social History Tobacco Use Types Packs/Day Years Used Date Smoking Tobacco: Never Assessed Sex and Gender Information Value Date Recorded Sex Assigned at Not on file 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
--- OUTSIDE RECORDS SUMMARY | 2025-05-27 13:56 | XMS_ITS | Encounter Summary ---
Author Organization [employer] [facility] Address [address] [place] [address] Care Team Providers Care It Support Analyst Name Role Phone Unavailable Primary Care Provider Unavailabl e Encounter Details Date Type Department Care Team (Latest Contact Info) Description 12/22/2000 Outpatient Historical [facility] L[facility] Lynn, Akhil Moore MD [address] [place] [id number] Temporomandibular joint disorders, unspecified (Primary Dx); Shortness of breath; Allergic rhinitis, cause unspecified Social History Tobacco Use Types Packs/Day Years Used Date Smoking Tobacco: Never Assessed Sex and Gender Information Value Date Recorded Sex Assigned at Not on file 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
--- OUTSIDE RECORDS SUMMARY | 2025-05-27 13:56 | XMS_ITS | Encounter Summary ---
Author Organization [employer] [facility] Address [address] [place] [address] Care Team Providers Care Bed And Breakfast Operator Name Role Phone Unavailable Primary Care Provider Unavailabl e Encounter Details Date Type Department Care Team (Latest Contact Info) Description 11/10/1998 Outpatient Historical [facility] Lc Lynn, Akhil Moore MD [address] [place] [address] Other abnormal clinical finding (Primary Dx) Social History Tobacco Use Types Packs/Day Years Used Date Smoking Tobacco: Never Assessed Sex and Gender Information Value Date Recorded Sex Assigned at Not on file Legal Sex Male 5:37 AM TOOL AND DIE REPAIR Gender Identity Not on file Sexual Orientation Not on file documented as of this encounter Plan of Treatment Not on file documented as of this encounter Visit Diagnoses Diagnosis Other abnormal clinical finding- Primary documented in this encounter
--- OUTSIDE RECORDS SUMMARY | 2025-05-27 13:56 | XMS_ITS | Clinical Summary ---
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
--- OUTSIDE RECORDS SUMMARY | 2025-05-27 13:56 | XMS_ITS | Encounter Summary ---
Author Organization [employer] [facility] Address [address] [place] [address] Care Team Providers Care Junior Recruiter Name Role Phone Unavailable Primary Care Provider Unavailabl e Encounter Details Date Type Department Care Team (Latest Contact Info) Description 11/02/2000 Outpatient Historical [facility] cL Lynn, Akhil Moore MD [address] [place] [address] Acute serous otitis media (Primary Dx); Anxiety state, unspecified Social History Tobacco Use Types Packs/Day Years Used Date Smoking Tobacco: Never Assessed Sex and Gender Information Value Date Recorded Sex Assigned at Not on file Legal Sex Male 5:37 AM YARN MAN Gender Identity Not on file Sexual Orientation Not on file documented as of this encounter Plan of Treatment Not on file documented as of this encounter Visit Diagnoses Diagnosis Acute serous otitis media- Primary Anxiety state, unspecified documented in this encounter
--- OUTSIDE RECORDS SUMMARY | 2025-05-27 13:56 | XMS_ITS | Encounter Summary ---
Author Organization [facility] Address [address] [place] [address] Care Team Providers Care Risk Assessment Consultant Name Role Phone Unavailable Primary Care Provider Unavailabl e Encounter Details Date Type Department Care Team (Latest Contact Info) Description 06/15/2001 Outpatient Historical [facility] Lc Lynn, Akhil Moore MD [address] [place] [address] Acute sinusitis, unspecified (Primary Dx); Effects of high altitude Social History Tobacco Use Types Packs/Day Years Used Date Smoking Tobacco: Never Assessed Sex and Gender Information Value Date Recorded Sex Assigned at Not on file Legal Sex Male 5:37 AM 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
--- OUTSIDE RECORDS SUMMARY | 2025-05-27 13:56 | XMS_ITS | Encounter Summary ---
Author Organization [employer] [facility] Address [address] [place] [address] Care Team Providers Care Skid Wrapper Name Role Phone Unavailable Primary Care Provider Unavailabl e Encounter Details Date Type Department Care Team (Latest Contact Info) Description 02/18/2003 Outpatient Historical [facility] L[facility] Lynn, Akhil Moore MD [address] [place] [address] ACUTE SINUSITIS NOS (Primary Dx); GENERALIZED ANXIETY DIS; VACCINE FOR STREP PNEUMONIAE Social History Tobacco Use Types Packs/Day Years Used Date Smoking Tobacco: Never Assessed Sex and Gender Information Value Date Recorded Sex Assigned at Not on file Legal Sex Male 5:37 AM SPECIALTY PLANT SUPERVISOR Gender Identity Not on file Sexual Orientation Not on file documented as of this encounter Plan of Treatment Not on file documented as of this encounter Visit Diagnoses Diagnosis Acute sinusitis, unspecified- Primary Generalized anxiety disorder Need for prophylactic vaccination against Streptococcus pneumoniae (pneumococcus) Need for prophylactic vaccination against streptococcus pneumoniae (pneumococcus) documented in this encounter
--- OUTSIDE RECORDS SUMMARY | 2025-05-27 13:56 | XMS_ITS | Encounter Summary ---
Author Organization [employer] [facility] Address [address] [place] [address] Care Team Providers Care Chamfering Machine Operator Name Role Phone Unavailable Primary Care Provider Unavailabl e Encounter Details Date Type Department Care Team (Latest Contact Info) Description 06/23/2000 Outpatient Historical [facility] Lc Lynn, Akhil Moore MD [address] [place] [address] Allergy, unspecified not elsewhere classified (Primary Dx) Social History Tobacco Use Types Packs/Day Years Used Date Smoking Tobacco: Never Assessed Sex and Gender Information Value Date Recorded Sex Assigned at Not on file Legal Sex Male 5:37 AM BRAZER ELECTRONIC Gender Identity Not on file Sexual Orientation Not on file documented as of this encounter Plan of Treatment Not on file documented as of this encounter Visit Diagnoses Diagnosis Allergy, unspecified not elsewhere classified- Primary documented in this encounter
--- OUTSIDE RECORDS SUMMARY | 2025-05-27 13:56 | XMS_ITS | Encounter Summary ---
Author Organization [employer] [facility] Address [address] [place] [address] Care Team Providers Care Barrel Cleaner Name Role Phone Unavailable Primary Care Provider Unavailabl e Encounter Details Date Type Department Care Team (Latest Contact Info) Description 12/29/2001 Outpatient Historical [facility] Lynn, Akhil Moore MD [address] [place] [address] LOSS OF WEIGHT (Primary Dx) Social History Tobacco Use Types Packs/Day Years Used Date Smoking Tobacco: Never Assessed Sex and Gender Information Value Date Recorded Sex Assigned at Not on file Legal Sex Male 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
--- OUTSIDE RECORDS SUMMARY | 2025-05-27 13:56 | XMS_ITS | Encounter Summary ---
Author Organization [facility] Address [address] [place] [address] Care Team Providers Care Electric Meter Tester Shop Name Role Phone Unavailable Primary Care Provider Unavailabl e Encounter Details Date Type Department Care Team (Latest Contact Info) Description 09/25/2001 Outpatient Historical [facility] L[facility] Lynn, Akhil Moore MD [address] [place] [address] DIARRHEA NOS (Primary Dx); NONINFEC GASTROENTERIT NEC Social History Tobacco Use Types Packs/Day Years Used Date Smoking Tobacco: Never Assessed Sex and Gender Information Value Date Recorded Sex Assigned at Not on file Legal Sex Male 5:37 AM CLEANER SIGNS Gender Identity Not on file Sexual Orientation Not on file documented as of this encounter Plan of Treatment Not on file documented as of this encounter Visit Diagnoses Diagnosis Diarrhea- Primary Other and unspecified noninfectious gastroenteritis and colitis(558.9) Other and unspecified noninfectious gastroenteritis and colitis documented in this encounter
--- OUTSIDE RECORDS SUMMARY | 2025-05-27 13:56 | XMS_ITS | Encounter Summary ---
Author Organization [employer] [facility] Address [address] [place] [address] Care Team Providers Care Hotel Front Desk Clerk Name Role Phone Unavailable Primary Care Provider Unavailabl e Encounter Details Date Type Department Care Team (Latest Contact Info) Description 02/12/2000 Outpatient Historical [facility] Lynn, Akhil Moore MD [address] [place] [address] Abdominal pain, unspecified site (Primary Dx) Social History Tobacco Use Types Packs/Day Years Used Date Smoking Tobacco: Never Assessed Sex and Gender Information Value Date Recorded Sex Assigned at Not on file Legal Sex Male 5:37 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
--- OUTSIDE RECORDS SUMMARY | 2025-05-27 13:56 | XMS_ITS | Encounter Summary ---
Author Organization [employer] [facility] Address [address] [place] [address] Care Team Providers Care Physicist Light And Optics Name Role Phone Unavailable Primary Care Provider Unavailabl e Encounter Details Date Type Department Care Team (Latest Contact Info) Description 05/21/1999 Outpatient Historical [facility] L[facility] Lynn, Akihl Moore MD [address] [place] [address] Allergic rhinitis, cause unspecified (Primary Dx) Social History Tobacco Use Types Packs/Day Years Used Date Smoking Tobacco: Never Assessed Sex and Gender Information Value Date Recorded Sex Assigned at Not on file Legal Sex Male 5:37 AM POND WORKER Gender Identity Not on file Sexual Orientation Not on file documented as of this encounter Plan of Treatment Not on file documented as of this encounter Visit Diagnoses Diagnosis Allergic rhinitis, cause unspecified- Primary documented in this encounter
--- OUTSIDE RECORDS SUMMARY | 2025-05-27 13:56 | XMS_ITS | Encounter Summary ---
Author Organization [employer] [facility] Address [address] [place] [address] Care Team Providers Care Mirror Machine Feeder Name Role Phone Unavailable Primary Care Provider Unavailabl e Encounter Details Date Type Department Care Team (Latest Contact Info) Description 07/17/1999 Outpatient Historical [facility] Lc Lynn, Akhil Moore MD [address] [place] [address] Generalized anxiety disorder (Primary Dx); Depressive disorder, not elsewhere classified Social History Tobacco Use Types Packs/Day Years Used Date Smoking Tobacco: Never Assessed Sex and Gender Information Value Date Recorded Sex Assigned at Not on file Legal Sex Male 5:37 AM COMMERCIAL ARTIST Gender Identity Not on file Sexual Orientation Not on file documented as of this encounter Plan of Treatment Not on file documented as of this encounter Visit Diagnoses Diagnosis Generalized anxiety disorder- Primary Depressive disorder, not elsewhere classified documented in this encounter
--- OUTSIDE RECORDS SUMMARY | 2025-05-27 13:56 | XMS_ITS | Encounter Summary ---
Author Organization [employer] [facility] Address [address] [place] [address] Care Team Providers Care Bottom Stainer Name Role Phone Unavailable Primary Care Provider Unavailabl e Encounter Details Date Type Department Care Team (Latest Contact Info) Description 09/01/1998 Outpatient Historical [facility] Lc Lynn, Akhil Moore MD [address] [place] [address] Other specified sites of sprains and strains (Primary Dx) Social History Tobacco Use Types Packs/Day Years Used Date Smoking Tobacco: Never Assessed Sex and Gender Information Value Date Recorded Sex Assigned at Not on file Legal Sex Male 5:37 AM SALES REPRESENTATIVE MEATS Gender Identity Not on file Sexual Orientation Not on file documented as of this encounter Plan of Treatment Not on file documented as of this encounter Visit Diagnoses Diagnosis Other specified sites of sprains and strains- Primary documented in this encounter
--- OUTSIDE RECORDS SUMMARY | 2025-05-27 13:56 | XMS_ITS | Encounter Summary ---
Author Organization [facility] Address [address] [place] [address] Care Team Providers Care Greenhouse Laborer Name Role Phone Unavailable Primary Care Provider Unavailabl e Encounter Details Date Type Department Care Team (Latest Contact Info) Description 07/14/2001 Outpatient Historical [facility] L[facility] Lynn, Akhil Moore MD [address] [place] [address] ALLERGIC RHINITIS NOS (Primary Dx); Acute nasopharyngitis Social History Tobacco Use Types Packs/Day Years Used Date Smoking Tobacco: Never Assessed Sex and Gender Information Value Date Recorded Sex Assigned at Not on file Legal Sex Male 5:37 AM SHOW HOST Gender Identity Not on file Sexual Orientation Not on file documented as of this encounter Plan of Treatment Not on file documented as of this encounter Visit Diagnoses Diagnosis Allergic rhinitis, cause unspecified- Primary Acute nasopharyngitis Acute nasopharyngitis (common cold) documented in this encounter
--- OUTSIDE RECORDS SUMMARY | 2025-05-27 13:56 | XMS_ITS | Encounter Summary ---
Author Organization [facility] Address [address] [place] [address] Care Team Providers Care Instrumental Teacher Name Role Phone Unavailable Primary Care Provider Unavailabl e Encounter Details Date Type Department Care Team (Latest Contact Info) Description 04/28/2000 Outpatient Historical [facility] L[facility] Lynn, Akhil Moore MD [address] [place] [address] Allergic rhinitis, cause unspecified (Primary Dx); Headache(784.0) Social History Tobacco Use Types Packs/Day Years Used Date Smoking Tobacco: Never Assessed Sex and Gender Information Value Date Recorded Sex Assigned at Not on file Legal Sex Male 5:37 AM WILLOWER Gender Identity Not on file Sexual Orientation Not on file documented as of this encounter Plan of Treatment Not on file documented as of this encounter Visit Diagnoses Diagnosis Allergic rhinitis, cause unspecified- Primary Headache(784.0) Headache documented in this encounter
--- OUTSIDE RECORDS SUMMARY | 2025-05-27 13:56 | XMS_ITS | Encounter Summary ---
Author Organization [employer] Address [address] [place] [address] Care Team Providers Care Inspector Chief Name Role Phone Unavailable Primary Care Provider Unavailabl e Encounter Details Date Type Department Care Team (Latest Contact Info) Description 04/16/1999 Outpatient Historical [facility] L[facility] Lynn, Akhil Moore MD [address] [place] [address] Panic disorder without agoraphobia (Primary Dx) Social History Tobacco Use Types Packs/Day Years Used Date Smoking Tobacco: Never Assessed Sex and Gender Information Value Date Recorded Sex Assigned at Not on file Legal Sex Male 5:37 AM BUSINESS SUPPORT MANAGER Gender Identity Not on file Sexual Orientation Not on file documented as of this encounter Plan of Treatment Not on file documented as of this encounter Visit Diagnoses Diagnosis Panic disorder without agoraphobia- Primary documented in this encounter
--- OUTSIDE RECORDS SUMMARY | 2025-05-27 13:56 | XMS_ITS | Encounter Summary ---
Author Organization [employer] [facility] Address [address] [place] [address] Care Team Providers Care Bindery Machine Setter/Set Up Operator Name Role Phone Unavailable Primary Care Provider Unavailabl e Encounter Details Date Type Department Care Team (Latest Contact Info) Description 10/15/1999 Outpatient Historical [facility] Lc Lynn, Akhil Moore MD [address] [place] [address] Unspecified adjustment reaction (Primary Dx) Social History Tobacco Use Types Packs/Day Years Used Date Smoking Tobacco: Never Assessed Sex and Gender Information Value Date Recorded Sex Assigned at Not on file Legal Sex Male 5:37 AM ASSISTANT CORPORATE 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
--- OUTSIDE RECORDS SUMMARY | 2025-05-27 13:56 | XMS_ITS | Encounter Summary ---
Author Organization [facility] Address [address] [place] [address] Care Team Providers Care Grill Associate Name Role Phone Unavailable Primary Care Provider Unavailabl e Encounter Details Date Type Department Care Team (Latest Contact Info) Description 08/18/1998 Outpatient Historical [facility] Otoniel Jaime NO ADDRESS ON FILE Other and unspecified noninfectious gastroenteritis and colitis(558.9) (Primary Dx) Social History Tobacco Use Types Packs/Day Years Used Date Smoking Tobacco: Never Assessed Sex and Gender Information Value Date Recorded Sex Assigned at Not on file Legal Sex Male 5:37 AM REACTOR OPERATOR Gender Identity Not on file Sexual Orientation Not on file documented as of this encounter Plan of Treatment Not on file documented as of this encounter Visit Diagnoses Diagnosis Other and unspecified noninfectious gastroenteritis and colitis(558.9)- Primary Other and unspecified noninfectious gastroenteritis and colitis documented in this encounter
--- OUTSIDE RECORDS SUMMARY | 2025-05-27 13:56 | XMS_ITS | Encounter Summary ---
Author Organization [employer] [facility] Address [address] [place] [address] Care Team Providers Care Pv Design And Installation Technician Name Role Phone Unavailable Primary Care Provider Unavailabl e Encounter Details Date Type Department Care Team (Latest Contact Info) Description 04/25/2003 Outpatient Historical [facility] Lc Lynn, Akhil Moore MD [address] [place] [address] CHRONIC RHINITIS (Primary Dx); TEAR FILM INSUFFIC NOS Social History Tobacco Use Types Packs/Day Years Used Date Smoking Tobacco: Never Assessed Sex and Gender Information Value Date Recorded Sex Assigned at Not on file Legal Sex Male 5:37 AM DIET CONSULTANT Gender Identity Not on file Sexual Orientation Not on file documented as of this encounter Plan of Treatment Not on file documented as of this encounter Visit Diagnoses Diagnosis Chronic rhinitis- Primary Tear film insufficiency, unspecified documented in this encounter
--- OUTSIDE RECORDS SUMMARY | 2025-05-27 13:56 | XMS_ITS | Encounter Summary ---
Author Organization [employer] [facility] Address [address] [place] [address] Care Team Providers Care Machinery Mover Name Role Phone Unavailable Primary Care Provider Unavailabl e Encounter Details Date Type Department Care Team (Latest Contact Info) Description 11/07/1998 Outpatient Historical [facility] Lynn, Akhil Moore MD [address] [place] [address] Allergic rhinitis, cause unspecified (Primary Dx); Anxiety state, unspecified Social History Tobacco Use Types Packs/Day Years Used Date Smoking Tobacco: Never Assessed Sex and Gender Information Value Date Recorded Sex Assigned at Not on file Legal Sex Male 5:37 AM LOGISTICS ADMINISTRATOR Gender Identity Not on file Sexual Orientation Not on file documented as of this encounter Plan of Treatment Not on file documented as of this encounter Visit Diagnoses Diagnosis Allergic rhinitis, cause unspecified- Primary Anxiety state, unspecified documented in this encounter
--- OUTSIDE RECORDS SUMMARY | 2025-05-27 13:56 | XMS_ITS | Encounter Summary ---
Author Organization [employer] [facility] Address [address] [place] [address] Care Team Providers Care Loan Processing Supervisor Name Role Phone Unavailable Primary Care Provider Unavailabl e Encounter Details Date Type Department Care Team (Latest Contact Info) Description 10/24/2000 Outpatient Historical [facility] L[facility] Lynn, Akhil Moore MD [address] [place] [address] Acute upper respiratory infections of unspecified site (Primary Dx); Acute pharyngitis; Anxiety state, unspecified; Screening examination for venereal disease Social History Tobacco Use Types Packs/Day Years Used Date Smoking Tobacco: Never Assessed Sex and Gender Information Value Date Recorded Sex Assigned at Not on file Legal Sex Male 5:37 AM PHYSICIAN RELATIONS MANAGER Gender Identity Not on file Sexual Orientation Not on file documented as of this encounter Plan of Treatment Not on file documented as of this encounter Visit Diagnoses Diagnosis Acute upper respiratory infections of unspecified site- Primary Acute pharyngitis Anxiety state, unspecified Screening examination for venereal disease documented in this encounter
--- OUTSIDE RECORDS SUMMARY | 2025-05-27 13:56 | XMS_ITS | Encounter Summary ---
Author Organization [employer] [facility] Address [address] [place] [address] Care Team Providers Care File Keeper Name Role Phone Unavailable Primary Care Provider Unavailabl e Encounter Details Date Type Department Care Team (Latest Contact Info) Description 04/12/2001 Outpatient Historical [facility] Lc Lynn, Akhil Moore MD [address] [place] [address] Disorders of bursae and tendons in shoulder region, unspecified (Primary Dx); Generalized anxiety disorder Social History Tobacco Use Types Packs/Day Years Used Date Smoking Tobacco: Never Assessed Sex and Gender Information Value Date Recorded Sex Assigned at Not on file Legal Sex Male 5:37 AM TRAVELING PHLEBOTOMIST Gender Identity Not on file Sexual Orientation Not on file documented as of this encounter Plan of Treatment Not on file documented as of this encounter Visit Diagnoses Diagnosis Disorders of bursae and tendons in shoulder region, unspecified- Primary Generalized anxiety disorder documented in this encounter
--- OUTSIDE RECORDS SUMMARY | 2025-05-27 13:56 | XMS_ITS | Encounter Summary ---
Author Organization [employer] [facility] Address [address] [place] [address] Care Team Providers Care Ornament Maker Hand Name Role Phone Unavailable Primary Care Provider Unavailabl e Encounter Details Date Type Department Care Team (Latest Contact Info) Description 03/30/2000 Outpatient Historical [facility] Lc Lynn, Akhil [place] MD [address] [place] [address] Other malaise and fatigue (Primary Dx) Social History Tobacco Use Types Packs/Day Years Used Date Smoking Tobacco: Never Assessed Sex and Gender Information Value Date Recorded Sex Assigned at Not on file Legal Sex Male 5:37 AM INSTRUCTIONAL SUPPORT SERVICES DIRECTOR Gender Identity Not on file Sexual Orientation Not on file documented as of this encounter Plan of Treatment Not on file documented as of this encounter Visit Diagnoses Diagnosis Other malaise and fatigue- Primary documented in this encounter
--- OUTSIDE RECORDS SUMMARY | 2025-05-27 13:56 | XMS_ITS | Encounter Summary ---
Author Organization [employer] [facility] Address [address] [place] [address] Care Team Providers Care Linux Systems Engineer Name Role Phone Unavailable Primary Care Provider Unavailabl e Encounter Details Date Type Department Care Team (Latest Contact Info) Description 12/07/2002 Outpatient Historical [facility] L[facility] Lynn, Akhil [place] MD [address] [place] [address] PROSTATITIS NOS (Primary Dx); ACUTE SINUSITIS NOS Social History Tobacco Use Types Packs/Day Years Used Date Smoking Tobacco: Never Assessed Sex and Gender Information Value Date Recorded Sex Assigned at Not on file Legal Sex Male 5:37 AM IMPREGNATOR ELECTROLYTIC CAPACITORS Gender Identity Not on file Sexual Orientation Not on file documented as of this encounter Plan of Treatment Not on file documented as of this encounter Visit Diagnoses Diagnosis Prostatitis, unspecified- Primary Acute sinusitis, unspecified documented in this encounter
--- OUTSIDE RECORDS SUMMARY | 2025-05-27 13:56 | XMS_ITS | Encounter Summary ---
Author Organization [employer] [facility] Address [address] [place] [address] Care Team Providers Care Welfare Centre Manager Name Role Phone Unavailable Primary Care Provider Unavailabl e Encounter Details Date Type Department Care Team (Latest Contact Info) Description 12/27/2001 Outpatient Historical [facility] Lc Lynn, Akhil [place] MD [address] [place] [address] LOSS OF WEIGHT (Primary Dx); ALLERGIC RHINITIS NOS Social History Tobacco Use Types Packs/Day Years Used Date Smoking Tobacco: Never Assessed Sex and Gender Information Value Date Recorded Sex Assigned at Not on file Legal Sex Male 5:37 AM GASKET WINDER Gender Identity Not on file Sexual Orientation Not on file documented as of this encounter Plan of Treatment Not on file documented as of this encounter Visit Diagnoses Diagnosis Loss of weight- Primary Allergic rhinitis, cause unspecified documented in this encounter
--- OUTSIDE RECORDS SUMMARY | 2025-05-27 13:56 | XMS_ITS | Encounter Summary ---
Author Organization [employer] [facility] Address [address] [place] [address] Care Team Providers Care Lower School Spanish Teacher Name Role Phone Unavailable Primary Care Provider Unavailabl e Encounter Details Date Type Department Care Team (Latest Contact Info) Description 09/30/2003 Outpatient Historical [facility] Everett Frias MD [address] [place] [address] ACUTE URI NOS (Primary Dx); IMPACTED CERUMEN Social History Tobacco Use Types Packs/Day Years Used Date Smoking Tobacco: Never Assessed Sex and Gender Information Value Date Recorded Sex Assigned at Not on file Legal Sex Male 5:37 AM BLUEPRINT MAKER Gender Identity Not on file Sexual Orientation Not on file documented as of this encounter Plan of Treatment Not on file documented as of this encounter Visit Diagnoses Diagnosis Acute upper respiratory infections of unspecified site- Primary Impacted cerumen documented in this encounter
--- OUTSIDE RECORDS SUMMARY | 2025-05-27 13:56 | XMS_ITS | Encounter Summary ---
Author Organization [facility] Address [address] [place] [address] Care Team Providers Care Torch Heater Name Role Phone Unavailable Primary Care Provider Unavailabl e Encounter Details Date Type Department Care Team (Latest Contact Info) Description 05/12/2001 Outpatient Historical [facility] Lc Lynn, Akhil [place] MD [address] [place] [address] Unspecified sinusitis (chronic) (Primary Dx); Acute serous otitis media Social History Tobacco Use Types Packs/Day Years Used Date Smoking Tobacco: Never Assessed Sex and Gender Information Value Date Recorded Sex Assigned at Not on file Legal Sex Male 5:37 AM PRODUCT OPERATIONS ASSOCIATE Gender Identity Not on file Sexual Orientation Not on file documented as of this encounter Plan of Treatment Not on file documented as of this encounter Visit Diagnoses Diagnosis Unspecified sinusitis (chronic)- Primary Acute serous otitis media documented in this encounter
--- OUTSIDE RECORDS SUMMARY | 2025-05-27 13:56 | XMS_ITS | Encounter Summary ---
Author Organization [employer] [facility] Address [address] [place] [address] Care Team Providers Care Experimental Machinist Name Role Phone Unavailable Primary Care Provider Unavailabl e Encounter Details Date Type Department Care Team (Latest Contact Info) Description 10/07/2000 Outpatient Historical [facility] Lc Lynn, Akhil [place] MD [address] [place] [address] Unspecified adjustment reaction (Primary Dx) Social History Tobacco Use Types Packs/Day Years Used Date Smoking Tobacco: Never Assessed Sex and Gender Information Value Date Recorded Sex Assigned at Not on file Legal Sex Male 5:37 AM TIGHT ROPE WALKER Gender Identity Not on file Sexual Orientation Not on file documented as of this encounter Plan of Treatment Not on file documented as of this encounter Visit Diagnoses Diagnosis Unspecified adjustment reaction- Primary documented in this encounter
--- OUTSIDE RECORDS SUMMARY | 2025-05-27 13:56 | XMS_ITS | Encounter Summary ---
Author Organization [employer] [facility] Address [address] [place] [address] Care Team Providers Care Salvage Mechanic Name Role Phone Unavailable Primary Care Provider Unavailabl e Encounter Details Date Type Department Care Team (Latest Contact Info) Description 09/07/2000 Outpatient Historical [facility] Lc Lynn, Akhil [place] MD [address] [place] [address] Acute sinusitis, unspecified (Primary Dx); Elevated blood pressure reading without diagnosis of hypertension Social History Tobacco Use Types Packs/Day Years Used Date Smoking Tobacco: Never Assessed Sex and Gender Information Value Date Recorded Sex Assigned at Not on file Legal Sex Male 5:37 AM SHOW CARD WRITER Gender Identity Not on file Sexual Orientation Not on file documented as of this encounter Plan of Treatment Not on file documented as of this encounter Visit Diagnoses Diagnosis Acute sinusitis, unspecified- Primary Elevated blood pressure reading without diagnosis of hypertension documented in this encounter
--- OUTSIDE RECORDS SUMMARY | 2025-05-27 13:56 | XMS_ITS | Encounter Summary ---
Author Organization [employer] [facility] Address [address] [place] [address] Care Team Providers Care Track Coach Name Role Phone Unavailable Primary Care Provider Unavailabl e Encounter Details Date Type Department Care Team (Latest Contact Info) Description 10/10/2001 Outpatient Historical [facility] Everett Frias MD [address] [place] [address] FLATUL/ERUCTAT/GAS PAIN (Primary Dx); ESOPHAGEAL REFLUX; IMPACTED CERUMEN; ABDOMINAL PAIN UNSPEC SITE Social History Tobacco Use Types Packs/Day Years Used Date Smoking Tobacco: Never Assessed Sex and Gender Information Value Date Recorded Sex Assigned at Not on file Legal Sex Male 5:37 AM PLASTIC EYE TECHNICIAN Gender Identity Not on file Sexual Orientation Not on file documented as of this encounter Plan of Treatment Not on file documented as of this encounter Visit Diagnoses Diagnosis Flatulence, eructation, and gas pain- Primary Esophageal reflux Impacted cerumen Abdominal pain, unspecified site documented in this encounter
--- OUTSIDE RECORDS SUMMARY | 2025-05-27 13:57 | XMS_ITS | Encounter Summary ---
Author Organization [employer] [facility] Address [address] [place] [address] Care Team Providers Care Black Topper Name Role Phone Unavailable Primary Care Provider Unavailabl e Encounter Details Date Type Department Care Team (Latest Contact Info) Description 02/19/1999 Outpatient Historical [facility] Lc Lynn, Akhil [place] MD [address] [place] [address] Enthesopathy of unspecified site (Primary Dx) Social History Tobacco Use Types Packs/Day Years Used Date Smoking Tobacco: Never Assessed Sex and Gender Information Value Date Recorded Sex Assigned at Not on file Legal Sex Male 5:37 AM FIXED WING PILOT Gender Identity Not on file Sexual Orientation Not on file documented as of this encounter Plan of Treatment Not on file documented as of this encounter Visit Diagnoses Diagnosis Enthesopathy of unspecified site- Primary documented in this encounter
--- OUTSIDE RECORDS SUMMARY | 2025-05-27 13:57 | XMS_ITS | Encounter Summary ---
Author Organization [employer] [facility] Address [address] [place] [address] Care Team Providers Care Ward Secretary Name Role Phone Unavailable Primary Care Provider Unavailabl e Encounter Details Date Type Department Care Team (Late st Contact Info) Description 10/29/2002 Outpatient Historical [facility] Lc Lynn, Akhil [place] MD [address] [place] [address] Social History Tobacco Use Types Packs/Day Years Used Date Smoking Tobacco: Never Assessed Sex and Gender Information Value Date Recorded Sex Assigned at Not on file Legal Sex Male 5:37 AM ADMINISTRATIVE INTERN Gender Identity Not on file Sexual Orientation Not on file documented as of this encounter Plan of Treatment Not on file documented as of this encounter Visit Diagnoses Not on filedocumented in this encounter
--- OUTSIDE RECORDS SUMMARY | 2025-05-27 13:57 | XMS_ITS | Encounter Summary ---
Author Organization [employer] [facility] Address [address] [place] [address] Care Team Providers Care Infantry Weapons Crewmember Name Role Phone Unavailable Primary Care Provider Unavailabl e Encounter Details Date Type Department Care Team (Latest Contact Info) Description 10/29/2002 Outpatient Historical [facility] Lc Lynn, Akhil [place] MD [address] [place] [address] URINARY FREQUENCY (Primary Dx); POLYURIA Social History Tobacco Use Types Packs/Day Years Used Date Smoking Tobacco: Never Assessed Sex and Gender Information Value Date Recorded Sex Assigned at Not on file Legal Sex Male 5:37 AM BROADBAND INSTALLER Gender Identity Not on file Sexual Orientation Not on file documented as of this encounter Plan of Treatment Not on file documented as of this encounter Visit Diagnoses Diagnosis Urinary frequency- Primary Polyuria documented in this encounter
--- OUTSIDE RECORDS SUMMARY | 2025-05-27 13:57 | XMS_ITS | Encounter Summary ---
Author Organization [employer] [facility] Address [address] [place] [address] Care Team Providers Care Reheater Helper Name Role Phone Unavailable Primary Care Provider Unavailabl e Encounter Details Date Type Department Care Team (Latest Contact Info) Description 11/25/1999 Outpatient Historical [facility] Lc Lynn, Akhil [place] MD [address] [place] [address] Anxiety state, unspecified (Primary Dx) Social History Tobacco Use Types Packs/Day Years Used Date Smoking Tobacco: Never Assessed Sex and Gender Information Value Date Recorded Sex Assigned at Not on file Legal Sex Male 5:37 AM CODING QUALITY ANALYST Gender Identity Not on file Sexual Orientation Not on file documented as of this encounter Plan of Treatment Not on file documented as of this encounter Visit Diagnoses Diagnosis Anxiety state, unspecified- Primary documented in this encounter
--- OUTSIDE RECORDS SUMMARY | 2025-05-27 13:57 | XMS_ITS | Encounter Summary ---
Author Organization [employer] [facility] Address [address] [place] [address] Care Team Providers Care Grain Mixer Name Role Phone Unavailable Primary Care Provider Unavailabl e Encounter Details Date Type Department Care Team (Latest Contact Info) Description 08/08/2002 Outpatient Historical [facility] Lc Lynn, Akhil [place] MD [address] [place] [address] PALPITATIONS (Primary Dx) Social History Tobacco Use Types Packs/Day Years Used Date Smoking Tobacco: Never Assessed Sex and Gender Information Value Date Recorded Sex Assigned at Not on file Legal Sex Male 5:37 AM CASH PERSON Gender Identity Not on file Sexual Orientation Not on file documented as of this encounter Plan of Treatment Not on file documented as of this encounter Visit Diagnoses Diagnosis Palpitations- Primary documented in this encounter
--- OUTSIDE RECORDS SUMMARY | 2025-05-27 13:57 | XMS_ITS | Encounter Summary ---
Author Organization [email or web address] [facility] Address [address] [place] [address] Care Team Providers Care Pharmacy Retail Support Specialist Name Role Phone Unavailable Primary Care Provider Unavailabl e Encounter Details Date Type Department Care Team (Latest Contact Info) Description 10/19/2002 Outpatient Historical [facility] Lc Lynn, Akhil [place] MD [address] [place] [address] POLYURIA (Primary Dx); GENERALIZED ANXIETY DIS Social History Tobacco Use Types Packs/Day Years Used Date Smoking Tobacco: Never Assessed Sex and Gender Information Value Date Recorded Sex Assigned at Not on file Legal Sex Male 5:37 AM UNDER CUTTER Gender Identity Not on file Sexual Orientation Not on file documented as of this encounter Plan of Treatment Not on file documented as of this encounter Visit Diagnoses Diagnosis Polyuria- Primary Generalized anxiety disorder documented in this encounter
--- OUTSIDE RECORDS SUMMARY | 2025-05-27 13:57 | XMS_ITS | Encounter Summary ---
Author Organization [employer] Address [address] [facility] Attn: [place] [address] Care Team Providers Care Lead Operator Name Role Phone Unavailable Primary Care Provider Unavailabl e Encounter Details Date Type Department Care Team (Late st Contact Info) Description 08/08/2002 Outpatient Historical [facility] NO ADDRESS ON FILE Social History Tobacco Use Types Packs/Day Years Used Date Smoking Tobacco: Never Assessed Sex and Gender Information Value Date Recorded Sex Assigned at Not on file Legal Sex Male 5:37 AM GREEN LUMBER GRADER Gender Identity Not on file Sexual Orientation Not on file documented as of this encounter Plan of Treatment Not on file documented as of this encounter Visit Diagnoses Not on filedocumented in this encounter
--- OUTSIDE RECORDS SUMMARY | 2025-05-27 13:57 | XMS_ITS | Encounter Summary ---
Author Organization [employer] [facility] Address [address] [place] [address] Care Team Providers Care Xray Tech Name Role Phone Unavailable Primary Care Provider Unavailabl e Encounter Details Date Type Department Care Team (Latest Contact Info) Description 01/14/1999 Outpatient Historical [facility] Lc Lynn, Akhil [place] MD [address] [place] [address] Allergic rhinitis, cause unspecified (Primary Dx); Bronchitis, not specified as acute or chronic Social History Tobacco Use Types Packs/Day Years Used Date Smoking Tobacco: Never Assessed Sex and Gender Information Value Date Recorded Sex Assigned at Not on file Legal Sex Male 5:37 AM MANAGER CREATIVE SERVICES Gender Identity Not on file Sexual Orientation Not on file documented as of this encounter Plan of Treatment Not on file documented as of this encounter Visit Diagnoses Diagnosis Allergic rhinitis, cause unspecified- Primary Bronchitis, not specified as acute or chronic documented in this encounter
--- OUTSIDE RECORDS SUMMARY | 2025-05-27 13:57 | XMS_ITS | Encounter Summary ---
Author Organization [employer] [facility] Address [address] [place] [address] Care Team Providers Care Pullman Conductor Name Role Phone Unavailable Primary Care Provider Unavailabl e Encounter Details Date Type Department Care Team (Latest Contact Info) Description 09/12/2002 Outpatient Historical [facility] Lc Lynn, Akhil [place] MD [address] [place] [address] ORTHOSTATIC HYPOTENSION (Primary Dx); GENERALIZED ANXIETY DIS Social History Tobacco Use Types Packs/Day Years Used Date Smoking Tobacco: Never Assessed Sex and Gender Information Value Date Recorded Sex Assigned at Not on file Legal Sex Male 5:37 AM ENTERPRISE CLOUD ARCHITECT Gender Identity Not on file Sexual Orientation Not on file documented as of this encounter Plan of Treatment Not on file documented as of this encounter Visit Diagnoses Diagnosis Orthostatic hypotension- Primary Generalized anxiety disorder documented in this encounter
--- OUTSIDE RECORDS SUMMARY | 2025-05-27 13:57 | XMS_ITS | Encounter Summary ---
Author Organization [facility] Address [address] [place] [address] Care Team Providers Care Shale Planer Operator Helper Name Role Phone Unavailable Primary Care Provider Unavailabl e Encounter Details Date Type Department Care Team (Latest Contact Info) Description 02/05/2002 Outpatient Historical [facility] Lc Lynn, Akhil [place] MD [address] [place] [address] SPASM OF MUSCLE (Primary Dx); ALLERGIC RHINITIS NOS; GENERALIZED ANXIETY DIS Social History Tobacco Use Types Packs/Day Years Used Date Smoking Tobacco: Never Assessed Sex and Gender Information Value Date Recorded Sex Assigned at Not on file Legal Sex Male 5:37 AM HEALTH EDUCATION SPECIALIST Gender Identity Not on file Sexual Orientation Not on file documented as of this encounter Plan of Treatment Not on file documented as of this encounter Visit Diagnoses Diagnosis Spasm of muscle- Primary Allergic rhinitis, cause unspecified Generalized anxiety disorder documented in this encounter
--- OUTSIDE RECORDS SUMMARY | 2025-05-27 13:57 | XMS_ITS | Encounter Summary ---
Author Organization [employer] [facility] Address [address] [place] [address] Care Team Providers Care Director Software Name Role Phone Unavailable Primary Care Provider Unavailabl e Encounter Details Date Type Department Care Team (Latest Contact Info) Description 12/15/1998 Outpatient Historical [facility] Lc Lynn, Akhil [place] MD [address] [place] [address] Other abnormal clinical finding (Primary Dx) Social History Tobacco Use Types Packs/Day Years Used Date Smoking Tobacco: Never Assessed Sex and Gender Information Value Date Recorded Sex Assigned at Not on file Legal Sex Male 5:37 AM POTATO CHIP PACKAGING MACHINE OPERATOR Gender Identity Not on file Sexual Orientation Not on file documented as of this encounter Plan of Treatment Not on file documented as of this encounter Visit Diagnoses Diagnosis Other abnormal clinical finding- Primary documented in this encounter
--- OUTSIDE RECORDS SUMMARY | 2025-05-27 13:57 | XMS_ITS | Encounter Summary ---
Author Organization [employer] [facility] Address [address] [place] [address] Care Team Providers Care Track Inspecting Supervisor Name Role Phone Unavailable Primary Care Provider Unavailabl e Encounter Details Date Type Department Care Team (Latest Contact Info) Description 12/30/1998 Outpatient Historical [facility] Matt Bishop MD [address] [place] [id number] Acute pharyngitis (Primary Dx); Acute upper respiratory infections of unspecified site Social History Tobacco Use Types Packs/Day Years Used Date Smoking Tobacco: Never Assessed Sex and Gender Information Value Date Recorded Sex Assigned at Not on file Legal Sex Male 5:37 AM MOSS PICKER Gender Identity Not on file Sexual Orientation Not on file documented as of this encounter Plan of Treatment Not on file documented as of this encounter Visit Diagnoses Diagnosis Acute pharyngitis- Primary Acute upper respiratory infections of unspecified site documented in this encounter
--- OUTSIDE RECORDS SUMMARY | 2025-05-27 13:57 | XMS_ITS | Encounter Summary ---
Author Organization [employer] [facility] Address [address] [place] [address] Care Team Providers Care Production Supply Equipment Tender Name Role Phone Unavailable Primary Care Provider Unavailabl e Encounter Details Date Type Department Care Team (Latest Contact Info) Description 03/15/2002 Outpatient Historical [facility] Lc Lynn, Akhil [place] MD [address] [place] [address] GENERALIZED ANXIETY DIS (Primary Dx) Social History Tobacco Use Types Packs/Day Years Used Date Smoking Tobacco: Never Assessed Sex and Gender Information Value Date Recorded Sex Assigned at Not on file Legal Sex Male 5:37 AM AUTOMOTIVE INTERNET SALES CONSULTANT Gender Identity Not on file Sexual Orientation Not on file documented as of this encounter Plan of Treatment Not on file documented as of this encounter Visit Diagnoses Diagnosis Generalized anxiety disorder- Primary documented in this encounter
--- OUTSIDE RECORDS SUMMARY | 2025-05-27 13:57 | XMS_ITS | Encounter Summary ---
Author Organization [employer] [facility] Address [address] [place] [address] Care Team Providers Care Mechanist Name Role Phone Unavailable Primary Care Provider Unavailabl e Encounter Details Date Type Department Care Team (Latest Contact Info) Description 07/05/2002 Outpatient Historical [facility] Lc Lynn, Akhil [place] MD [address] [place] [address] OTHER MALAISE AND FATIGUE (Primary Dx); ALLERGIC RHINITIS NEC Social History Tobacco Use Types Packs/Day Years Used Date Smoking Tobacco: Never Assessed Sex and Gender Information Value Date Recorded Sex Assigned at Not on file Legal Sex Male 5:37 AM BUILDING RENTAL MANAGER Gender Identity Not on file Sexual Orientation Not on file documented as of this encounter Plan of Treatment Not on file documented as of this encounter Visit Diagnoses Diagnosis Other malaise and fatigue- Primary Allergic rhinitis due to other allergen documented in this encounter
--- OUTSIDE RECORDS SUMMARY | 2025-05-27 13:57 | XMS_ITS | Encounter Summary ---
Author Organization [employer] [facility] Address [address] [place] [address] Care Team Providers Care Analytical Strategist Name Role Phone Unavailable Primary Care Provider Unavailabl e Encounter Details Date Type Department Care Team (Latest Contact Info) Description 01/22/1999 Outpatient Historical [facility] Lc Lynn, Akhil [place] MD [address] [place] [address] Allergic rhinitis, cause unspecified (Primary Dx); Pain in joint, site unspecified Social History Tobacco Use Types Packs/Day Years Used Date Smoking Tobacco: Never Assessed Sex and Gender Information Value Date Recorded Sex Assigned at Not on file Legal Sex Male 5:37 AM CLOTH WINDING SUPERVISOR Gender Identity Not on file Sexual Orientation Not on file documented as of this encounter Plan of Treatment Not on file documented as of this encounter Visit Diagnoses Diagnosis Allergic rhinitis, cause unspecified- Primary Pain in joint, site unspecified documented in this encounter
--- OUTSIDE RECORDS SUMMARY | 2025-05-27 13:57 | XMS_ITS | Encounter Summary ---
Author Organization [facility] [employer] Address [address] [place] [address] Care Team Providers Care Inspector Rough Castings Name Role Phone Unavailable Primary Care Provider Unavailabl e Encounter Details Date Type Department Care Team (Latest Contact Info) Description 04/02/1999 Outpatient Historical [facility] Lynn, Akhil Moore MD [address] [place] [address] Obsessive-compulsive disorders (Primary Dx) Social History Tobacco Use Types Packs/Day Years Used Date Smoking Tobacco: Never Assessed Sex and Gender Information Value Date Recorded Sex Assigned at Not on file Legal Sex Male 5:37 AM EMPLOYEE HEALTH RN Gender Identity Not on file Sexual Orientation Not on file documented as of this encounter Plan of Treatment Not on file documented as of this encounter Visit Diagnoses Diagnosis Obsessive-compulsive disorders- Primary documented in this encounter
--- OUTSIDE RECORDS SUMMARY | 2025-05-27 13:57 | XMS_ITS | Encounter Summary ---
Author Organization [employer] [facility] Address [address] [place] [address] Care Team Providers Care Video Camera Operator Name Role Phone Unavailable Primary Care Provider Unavailabl e Encounter Details Date Type Department Care Team (Latest Contact Info) Description 04/20/2002 Outpatient Historical [facility] Lynn, Akhil Moore MD [address] [place] [address] GENERALIZED ANXIETY DIS (Primary Dx) Social History Tobacco Use Types Packs/Day Years Used Date Smoking Tobacco: Never Assessed Sex and Gender Information Value Date Recorded Sex Assigned at Not on file Legal Sex Male 5:37 AM CHANNEL SPECIALIST Gender Identity Not on file Sexual Orientation Not on file documented as of this encounter Plan of Treatment Not on file documented as of this encounter Visit Diagnoses Diagnosis Generalized anxiety disorder- Primary documented in this encounter
[2025-05-27 14:05] VITALS: BP 177/105; PULSE 68; RESP 16; TEMP 36.7; O2SAT 96
--- NOTE | 2025-05-27 14:15 | CT_ITS ---
WS: [id number] Exam: CT head thrombolytic [id number] Date/Time of Exam: 05/27/2025 2:17 PM Reason For Exam: SYMPTOMS OF ACUTE STROKE DLP: Comparison 12/03/2021. No sign of space-occupying mass or acute intracranial bleed. The ventricles and basal cisterns are normal in size. No extra-axial fluid collections are seen. The skull is intact. The mastoids and facial sinuses are clear. The scalp is unremarkable. Normal orbits and optic globes. Kaur and white matter substance well differentiated. CT/CT head thrombolytic [id number] IMPRESSION: 1. Negative noncontrast CT scan of the brain.
--- NOTE | 2025-05-27 14:18 | W.ED.NEUROSD ---
HPI - Neuro Symptoms/Deficit General: Chief Complaint: Neuro Symptoms/Deficit Stated Complaint: Poss Stroke headache Time Seen by Provider: 05/27/25 14:11 History of Present Illness: 65-year-old man with a history of atrial fibrillation, chronic anticoagulation on Eliquis, hypertension and BPH who presents to the emergency room with neurologic symptoms. He has no focal motor deficits. No facial droop. No slurred speech. He does not remember the day or year. His said he had a headache last night and he says he does not remember it. He also says he has some amnesia over some time he was in the barn working earlier today. No fevers. No cough. No abdominal pain. Previously he was not able to answer questions correctly. said that he said multiple times on the way here where were going and where are we. Last known well time was estimated around 45 minutes to an hour ago. Related Data Home Medications ?Medication ?Instructions ?Recorded ?Confirmed aspirin 81 mg tablet,delayed 81 mg PO DAILY 02/03/22 05/14/25 release (Adult Low Dose Aspirin) wheat dextrin 5 gram/7.4 gram oral g PO DAILY 04/04/23 05/14/25 powder (Benefiber Healthy Shape) nadolol 20 mg tablet 10 mg PO DAILY 07/18/23 05/14/25 diphenhydramine HCl 25 mg tablet 25 mg PO TID PRN 12/22/23 05/14/25 (Benadryl Allergy) losartan 50 mg tablet 50 mg PO DAILY 11/30/24 05/14/25 famotidine 20 mg tablet 20 mg PO DAILY 02/05/25 05/14/25 Previous Rx's ?Medication ?Instructions ?Recorded apixaban 5 mg tablet (Eliquis) See Rx Instructions .Route 08/07/24 .COMPLEX #180 tabs citalopram 10 mg tablet 10 mg PO DAILY #30 tabs 02/26/25 Auto-titrating CPAP with mask and #1 ea 02/28/25 supplies clonazepam 0.5 mg tablet 0.5 mg PO BID #30 tabs 04/23/25 Allergies Allergy/AdvReac Type Severity Reaction Status Date / Time lidocaine Allergy Severe ALGY-Rash Verified 02/05/25 16:39 Review of Systems Narrative: Constitutional symptoms: Negative except as documented in HPI. Skin symptoms: Negative except as documented in HPI. Eye symptoms: Negative except as documented in HPI. ENMT symptoms: Negative except as documented in HPI. Respiratory symptoms: Negative except as documented in HPI. Cardiovascular symptoms: Negative except as documented in HPI. Gastrointestinal symptoms: Negative except as documented in HPI. Genitourinary symptoms: Negative except as documented in HPI. Musculoskeletal symptoms: Negative except as documented in HPI. Neurologic symptoms: Negative except as documented in HPI. Psychiatric symptoms: Negative except as documented in HPI. Endocrine symptoms: Negative except as documented in HPI. PFSH ED PFSH: Medical History (Updated 05/27/25 @ 15:44 by Karen Erickson MD) Anticoagulation adequate Polyuria BPH with obstruction/lower urinary tract symptoms HTN (hypertension) Atrial fibrillation Paroxysmal Surgical History Hx of hemorrhoidectomy Hx of decompression of ulnar nerve Right - 2023 S/P appendectomy S/P knee surgery Right - meniscus Family History Mother No problems noted. Grandmother Cancer PATERNAL/BREAST Grandfather CAD (coronary artery disease) PATERNAL/MATERNAL Stroke PATERNAL Father Hypertension CAD (coronary artery disease) Ulcer Social History Smoking and tobacco/nicotine status: never used tobacco/nicotine Alcohol intake: never Substance/Drug Use: never Household members: spouse Marital status: service: No Current occupational status: retired and other Details: [employer] RET[employer] Physical Exam Narrative: EXAM NARRATIVE: General: Alert, no acute distress. Skin: Warm, dry. Head: Normocephalic, atraumatic. Neck: Supple, trachea midline. Eye: Extraocular movements are intact. Ears, nose, mouth and throat: mucosa moist. Cardiovascular: Regular, Normal peripheral perfusion. Respiratory: Lungs are clear to auscultation, respirations are non-labored, breath sounds are equal, Symmetrical chest wall expansion. Gastrointestinal: Soft, Nontender, Non distended Musculoskeletal: Normal ROM, no deformity. Neurological: Alert and oriented, No focal neurological deficit observed. Psychiatric: Cooperative, appropriate mood & affect. Course Vital Signs: Vital signs: Vital Signs Temperature 98.0 F 05/27/25 14:05 Pulse Rate 62 05/27/25 15:24 Respiratory Rate 16 05/27/25 15:24 Blood Pressure 153/94 05/27/25 15:24 Pulse Oximetry 96 05/27/25 15:24 Oxygen Delivery Me thod Room Air 05/27/25 15:24 MDM - Neuro Symptoms/Deficit Medical Decision Making Medical decision making: Differential diagnosis including but not limited to and based on the above HPI, review of systems and physical exam: In this patient with altered mental status: Stroke. Hypoglycemia. Metabolic encephalopathy. Infections such as pneumonia, urinary tract infection, Covid-19, Influenza. Electrolyte abnormalities such as hypernatremia. Renal failure / uremia. Hepatic encephalopathy. Hypoxemia. Hypercapnic respiratory failure. Psychosis. Drug or alcohol intoxication. Medication overdose. Orders placed to evaluate differential diagnosis based on the above differential, HPI and physical exam Last known well time initially thought to be about 45 minutes ago. However he did have some amnesia about last night as well. His says he had said he has a headache and he does not remember it NIH Stroke Scale/Score (NIHSS) from [facility] on 05/27/2025 All calculations should be rechecked by clinician prior to use RESULT SUMMARY: 0 points NIH Stroke Scale INPUTS: 1A: Level of consciousness ?> 0 = Alert; keenly responsive 1B: Ask month and age ?> 0 = Both questions right 1C: 'Blink eyes' & 'squeeze hands' ?> 0 = Performs both tasks 2: Horizontal extraocular movements ?> 0 = Normal 3: Visual rangel ?> 0 = No visual loss 4: Facial palsy ?> 0 = Normal symmetry 5A: Left arm motor drift ?> 0 = No drift for 10 seconds 5B: Right arm motor drift ?> 0 = No drift for 10 seconds 6A: Left leg motor drift ?> 0 = No drift for 5 seconds 6B: Right leg motor drift ?> 0 = No drift for 5 seconds 7: Limb Ataxia ?> 0 = No ataxia 8: Sensation ?> 0 = Normal; no sensory loss 9: Language/aphasia ?> 0 = Normal; no aphasia 10: Dysarthria ?> 0 = Normal 11: Extinction/inattention ?> 0 = No abnormality CT head: No acute intracranial process. no intracranial hemorrhage, no evidence of infarct. no evidence of acute fracture.This was reviewed and interpreted by myself the ER physician. EKG: Time 1510. Rate 62. Normal sinus rhythm, No ST-T changes, PVCs, normal GA & QRS intervals, This was reviewed and interpreted by myself the ER physician at 1515 Patient is on anticoagulation so would not qualify for TNKase. Also his NIH was negative. Lab Review: Laboratory results were reviewed and interpreted by myself the emergency room physician. No leukocytosis. No anemia. Stable mild renal insufficiency with a creatinine of 1.2. Urinalysis negative for infection. I reviewed the patient's medical record. Reexamination: Patient remained stable. No increased work of breathing. No altered mental status. No focal motor deficits. Patient continues to have no current symptoms. Other than that he has some memory lapses. Says he does not remember the trip here or having a headache last night. He says he had a similar episode and had a workup a year or so ago. Blood pressure resolved without treatment. Assessment and plan: Amnesia Possible TIA but not consistent with a stroke Hypertension - Discharged home - Discussed plan with patient. Answered any questions. - Evaluation and treatment of this problem were appropriate in the emergency setting. Lab Data 05/27/25 14:50 05/27/25 14:[address] 05/27/25 14:15 IMPRESSION: 1. Negative noncontrast CT scan of the brain. Laboratory Results WBC 6.37 10^3/uL (3.29-11.43) 05/27/25 14:50 RBC 5.61 10^6/uL (3.85-5.65) 05/27/25 14:50 Hgb 16.10 g/dL (11.27-16.99) 05/27/25 14:50 Hct 46.0 % (37-53) 05/27/25 14:50 MCV 82.0 fl (82-101) 05/27/25 14:50 MCH 28.7 pg (27-33) 05/27/25 14:50 MCHC 35.0 g/dL (30-55) 05/27/25 14:50 RDW 12.9 % (12.1-15.1) 05/27/25 14:50 Plt Count 235 10^3/cmm (157-399) 05/27/25 14:50 MPV 9.6 fL (7.4-10.4) 05/27/25 14:50 Neut % (Auto) 59.9 % 05/27/25 14:50 Lymph % (Auto) 30.1 % 05/27/25 14:50 [place] % (Auto) 7.2 % 05/27/25 14:50 Eos % (Auto) 1.6 % 05/27/25 14:50 Baso % (Auto) 0.9 % 05/27/25 14:50 Neut # (Auto) 3.81 10^3/uL (1.8-7.7) 05/27/25 14:50 Lymph # (Auto) 1.9 10^3/uL (0.8-4.8) 05/27/25 14:50 [place] # (Auto) 0.5 10^3/uL (0.2-0.9) 05/27/25 14:50 Eos # (Auto) 0.1 10^3/uL (0.0-0.8) 05/27/25 14:50 Baso # (Auto) 0.1 10^3/uL (0.0-0.1) 05/27/25 14:50 Nucleated RBC % (auto) 0 % 05/27/25 14:50 Nucleated RBCs # 0.0 /100WBC 05/27/25 14:50 PT 13.40 SECONDS (12.1-14.9) 05/27/25 14:50 INR 0.96 (0.8-1.2) 05/27/25 14:50 APTT 29.8 SECONDS (23.9-36.7) 05/27/25 14:50 Sodium 138 mmol/L (136-145) 05/27/25 14:50 Potassium 4.1 mmol/L (3.5-5.1) 05/27/25 14:50 Chloride 100 mmol/L (98-107) 05/27/25 14:50 Carbon Dioxide 25 mmol/L (22-29) 05/27/25 14:50 Anion Gap 17.1 (5-19) 05/27/25 14:50 BUN 16 mg/dL (8-23) 05/27/25 14:50 Creatinine 1.2 mg/dL (0.7-1.2) 05/27/25 14:50 GFR Calculation 61.0 mL/min (90-130) L 05/27/25 14:50 Glucose 103 mg/dL (65-115) 05/27/25 14:50 POC Glucose 100 mg/dL (70-110) 05/27/25 14:14 Calculated Osmolality 287 mOsm/kg (285-295) 05/27/25 14:50 Calcium 9.1 mg/dL (8.5-10.5) 05/27/25 14:50 Total Bilirubin 1.2 mg/dL (0.15-1.2) 05/27/25 14:50 AST 16 U/L (0-40) 05/27/25 14:50 ALT 21 U/L (0-41) 05/27/25 14:50 Alkaline Phosphatase 53 U/L (40-130) 05/27/25 14:50 Total Protein 7.6 g/dL (6.6-8.7) 05/27/25 14:50 Albumin 4.2 g/dL (3.5-5.2) 05/27/25 14:50 Globulin 3.4 g/dL (1.3-4.6) 05/27/25 14:50 Urine Color Yellow (Yellow) 05/27/25 14:50 Urine Appearance Clear (CLEAR) 05/27/25 14:50 Urine pH 5.5 (5-7) 05/27/25 14:50 Ur Specific [place] 1.008 (1.005-1.030) 05/27/25 14:50 Urine Protein Negative (Negative) 05/27/25 14:50 Urine Glucose (UA) Negative (Normal) 05/27/25 14:50 Urine Ketones Negative (Negative) 05/27/25 14:50 Urine Blood Negative (Negative) 05/27/25 14:50 Urine Nitrate Negative (Negative) 05/27/25 14:50 Urine Bilirubin Negative (Negative) 05/27/25 14:50 Urine Urobilinogen 0.2 mg/dL (Negative) 05/27/25 14:50 Ur Leukocyte Esterase Negative (Negative) 05/27/25 14:50 Urine RBC 0-2 /hpf (0-2) 05/27/25 14:50 Urine WBC 0-5 /hpf (0-5) 05/27/25 14:50 Ur Squamous Epith Cells 0-5 /hpf (0-5) 05/27/25 14:50 Amorphous Sediment Not Reportable 05/27/25 14:50 Urine Bacteria None seen /hpf (NONE) 05/27/25 14:50 Hyaline Casts 0-4 /lpf H 05/27/25 14:50 Urine Opiates Screen Negative ng/mL (Negative) 05/27/25 14:50 Ur Barbiturates Screen Negative ng/mL (Negative) 05/27/25 14:50 Ur Phencyclidine Scrn Negative ng/mL (Negative) 05/27/25 14:50 Ur Amphetamines Screen Negative ng/mL (Negative) 05/27/25 14:50 U Benzodiazepines Scrn Negative ng/mL (Negative) 05/27/25 14:50 Urine Cocaine Screen Negative ng/mL (Negative) 05/27/25 14:50 U Marijuana (THC) Screen Negative ng/mL (Negative) 05/27/25 14:50 All radiology interpretation(s) finalized by discharge Discharge Plan Discharge Patient Disposition: Home Clinical Impression: Transient ischemic attack, Hypertension, Chronic anticoagulation Condition: Stable Prescriptions: No Action aspirin [Adult Low Dose Aspirin] 81 mg tablet,delayed release (DR/EC) 81 mg PO DAILY nadolol 20 mg tablet 10 mg PO DAILY Benefiber Healthy Shape 5 gram/7.4 gram powder PO DAILY diphenhydramine HCl [Benadryl Allergy] 25 mg tablet 25 mg PO TID PRN losartan 50 mg tablet 50 mg PO DAILY citalopram 10 mg tablet 10 mg PO DAILY Qty: 30 6RF famotidine 20 mg tablet 20 mg PO DAILY Eliquis 5 mg tablet See Rx Instructions .ROUTE .COMPLEX Qty: 180 3RF Dose Instruction: TAKE 1 TABLET BY MOUTH TWICE DAILY Rx Instructions: TAKE 1 TABLET BY MOUTH TWICE DAILY (DME) Auto-titrating CPAP with mask and supplies See Rx Instructions .ROUTE .MEDSUPPLY Qty: 1 0RF Rx Instructions: Use while sleeping at least 4 hours per day. Settings: 6-16 cm H2O clonazepam 0.5 mg tablet 0.5 mg PO BID Qty: 30 2RF Discharge Orders: Discharge ED (Routine); Ordered 05/27/25 Ordered By: Karen Erickson Referrals: Chris Kuamr MD [Primary Care Provider, Family Practice] Discharge Diet: Usual diet Discharge Activity: Increase activity as tolerated Patient Instructions: Transient Ischemic Attack (ED), Opioid Safety, Pain Management, Patient Portal & Beckie Instructions Activity Restrictions/Additional Instructions: Thank you [facility] choosing [facility] your healthcare needs today. You have been screened and evaluated and felt safe for discharge. Health conditions do change or evolve sometimes and as such it is important that you follow up with your Primary Doctor to be re checked, 3-5 days is a general good time frame for follow up. You are always welcome to return to the ED for re assessment if your symptoms are worsening or you have new concerns Print Language: Scottish Coding Level of Care Code ED Photogrammetric Compilation Specialist for Robert Bonilla
--- NOTE | 2025-05-27 14:31 | ECG_ITS ---
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 Measurements Intervals [place] Rate: 62 P: 14 CA: 185 QRS: -2 QRSD: 77 T: 65 QT: 408 QTc: 417 Interpretive Statements SINUS RHYTHM WITH OCCASIONAL SUPRAVENTRICULAR PREMATURE COMPLEXES Compared to ECG 12/04/2021 12:23:05 No significant changes Electronically Signed On 05-27-2025 20:17:45 CDT by Dolores Leonard M.D. [email or web address]
[2025-05-27 14:58] LABS: Glucose Urine UA Negative (Normal); Hematocrit 46.0 % (37-53); Hemoglobin 16.10 g/dL (11.27-16.99); Mean Corpuscular HGB Conc 35.0 g/dL (30-55); Mean Corpuscular Hemoglobin 28.7 pg (27-33); Mean Corpuscular Volume 82.0 fl (82-101); Nitrate Urine Negative (Negative); Nucleated Red Blood Cells % 0 %; Platelet Count 235 10^3/cmm (157-399); Red Blood Count 5.61 10^6/uL (3.85-5.65); Specific Gravity, Urine 1.008 (1.005-1.030); White Blood Count 6.37 10^3/uL (3.29-11.43)
[2025-05-27 15:00] LABS: Add Urine Microscopic? YES
[2025-05-27 15:05] LABS: PCP Screen Urine Negative (Negative)
[2025-05-27 15:15] LABS: INR 0.96 (0.8-1.2); Prothrombin Time 13.40 SECONDS (12.1-14.9)
[2025-05-27 15:16] LABS: Partial Thromboplastin Time 29.8 SECONDS (23.9-36.7)
[2025-05-27 15:21] LABS: Alanine Aminotransferase 21 U/L (0-41); Albumin Level 4.2 g/dL (3.5-5.2); Alkaline Phosphatase 53 U/L (40-130); Anion Gap 17.1 (5-19); Aspartate Amino Transferase 16 U/L (0-40); Blood Urea Nitrogen 16 mg/dL (8-23); Calcium 9.1 mg/dL (8.5-10.5); Carbon Dioxide 25 mmol/L (22-29); Chloride 100 mmol/L (98-107); Creatinine Clr Calc Pharmacy 82.9343; Globulin 3.4 g/dL (1.3-4.6); Glucose 103 mg/dL (65-115); Osmolality Calculated 287 mOsm/kg (285-295); Potassium 4.1 mmol/L (3.5-5.1); Sodium 138 mmol/L (136-145); Total Protein 7.6 g/dL (6.6-8.7)
[2025-05-27 15:24] VITALS: BP 153/94; PULSE 62; RESP 16; O2SAT 96
[2025-05-27 15:51] VITALS: BP 167/104; PULSE 60; RESP 16; O2SAT 97
== END 2025-05-27 15:50 | disposition home or self-care (01) ==
PROVIDERS: Emergency Provider Emergency Medicine; PCP Family Medicine
DX: G45.9 Transient cerebral ischemic attack, unspecified (principal); I10 Essential (primary) hypertension; Z79.01 Long term (current) use of anticoagulants; Z79.82 Long term (current) use of aspirin
CPT/HCPCS: 36415; 36416; 70450; 80053; 80306; 81001; 82962; 85025; 85610; 85730; 93005; 99284